=== PATIENT | female | born 1960 | race Caucasian/White ===

== ENCOUNTER 2019-07-14 04:15 | Outpatient (RCR) | payer MEDICARE, MEDICAID, SELFPAY | END 2019-07-19 | LOC: LAB 04:15 | PROVIDERS: Family Provider Internal Medicine; Visit Provider Nurse Practitioner Family | DX: I10 Essential (primary) hypertension (principal) | CPT/HCPCS: 36415; 80048; 83036; 85025 ==

== ENCOUNTER → 2019-08-29 14:11 | Outpatient (BNVA) | payer MEDICARE, MEDICAID, SELFPAY | PROVIDERS: Family Provider Internal Medicine; PCP Internal Medicine; Visit Provider Nurse Practitioner | DX: F25.0 Schizoaffective disorder, bipolar type (principal); F70 Mild intellectual disabilities | CPT/HCPCS: 99203 ==

== ENCOUNTER → 2019-11-21 08:19 | Outpatient (BNVA) | payer MEDICARE, MEDICAID, SELFPAY | PROVIDERS: Family Provider Internal Medicine; PCP Internal Medicine; Visit Provider Nurse Practitioner | DX: F25.0 Schizoaffective disorder, bipolar type (principal); F70 Mild intellectual disabilities | CPT/HCPCS: 99213 ==

== ENCOUNTER → 2020-02-23 11:07 | Outpatient (BNVA) | payer MEDICARE, MEDICAID, SELFPAY | PROVIDERS: Family Provider Internal Medicine; PCP Internal Medicine; Visit Provider Nurse Practitioner | DX: F70 Mild intellectual disabilities (principal); F25.0 Schizoaffective disorder, bipolar type | CPT/HCPCS: 99214 ==

== ENCOUNTER → 2020-03-21 07:53 | Outpatient (BNVA) | payer MEDICARE, MEDICAID, SELFPAY | PROVIDERS: Family Provider Internal Medicine; PCP Internal Medicine; Visit Provider Nurse Practitioner | DX: F25.0 Schizoaffective disorder, bipolar type (principal); F70 Mild intellectual disabilities | CPT/HCPCS: 99213 ==

== ENCOUNTER 2020-06-28 18:16 | Inpatient (IN) | payer MEDICARE, MEDICAID, SELFPAY ==
[2020-06-28] VITALS (10 sets, daily range): BP systolic 108–133; BP diastolic 53–75; PULSE 88–99; RESP 18–24; TEMP 37.3–38.8; O2SAT 91–100; BMI 61.0
--- NOTE | 2020-06-28 18:25 | XR_ITS ---
WS: [id number] XR chest 1V portable [id number] REASON FOR EXAM: shortness of breath, covid FINDINGS: No previous examination for comparison. Moderate tortuosity the thoracic aorta without significant dilatation. The heart is normal. Findings are equivocal but there is suspicion for patchy interstitial alveolar infiltrative changes i n the mid and lower lung griffin. No findings for effusion. XR/XR chest 1V portable [id number] IMPRESSION: Equivocal findings for infiltrates in both lungs as above. Follow-up chest x-ra y recommended. Definitive evaluation would be noncontrast CT scan of the chest.
--- NOTE | 2020-06-28 18:27 | ECG_ITS ---
[facility] Test Date: 2020-06-28 Pat Name: Taylor Stanley Department: Room: Gender: Female Job Site Superintendent: : 1960 Requested By: Efrain Scott Order Number: [id number] Gage MD: Luciana Hernandez M.D. Measurements Intervals [place] Rate: 94 P: 81 IA: 199 QRS: 74 QRSD: 156 T: 46 QT: 366 QTc: 460 Interpretive Statements SINUS RHYTHM RIGHT BUNDLE BRANCH BLOCK [120+ ms QRS DURATION, UPRIGHT V1, 40+ ms S IN I/aVL/V4/V5/V6] INTERPRETATION BASED ON A DEFAULT AGE OF 40 YEARS No previous ECG available for comparison Electronically Signed On 06-28-2020 21:19:46 CITY WELLNESS COORDINATOR by Luciana Hernandez M.D. [email or web address]/store/[id number] f
[2020-06-28] MEDS: ondansetron 2 mg/ML SDV 2 mL 4 MG IVP (18:44)
[2020-06-28] MEDS: cefepime 2,000 MG in sodium chloride 0.9% (plus) 50 ML 100 MG IV (18:44)
--- NOTE | 2020-06-28 18:44 | CTR_ITS ---
PROCEDURE INFORMATION: Exam: CT Head Without Contrast Exam date and time: 06/28/2020 7:07 PM Age: 59 years old Clinical indication: Altered mental status/memory loss; Patient HX: PT nonverbal. Best images. PT coughed through entire exam. Covid +; Additional info: AMS TECHNIQUE: Imaging protocol: Computed tomography of the head without contrast. Radiation optimization: All CT scans at this facility use at least one of these dose optimization techniques: automated exposure control; mA and/or kV adjustment per patient size (includes targeted exams where dose is matched to clinical indication); or iterative reconstruction. COMPARISON: No relevant prior studies available. RADIATION DOSE METRICS: Total DLP (mGy-cm): 1345.86 FINDINGS: Brain: Normal. No hemorrhage. Unremarkable white matter. No mass effect. Cerebral ventricles: No ventriculomegaly. Bones/joints: Unremarkable. No acute fracture. Paranasal sinuses: Visualized sinuses are unremarkable. No fluid levels. Mastoid air cells: Visualized mastoid air cells are well aerated. Vasculature: Moderate calcified intracranial atherosclerotic vessel disease. Soft tissues: Unremarkable. Dental: Examination is limited secondary to metallic artifact from dental fillings and/or dental hardware. CT/CT head wo con* [id number] IMPRESSION: No acute intracranial findings. Radiation Dose CTDIVOL = (mGy): DLP = 1345.86 (mGy-cm)
[2020-06-28 18:46] LABS: Basophils % 0.2 %; Eosinophils # 0.1 10^3/uL (0.0-0.8); Eosinophils % 0.6 %; Hemoglobin 11.4 g/dL (11.5-15.3); Lymphocytes # 1.8 10^3/uL (0.8-4.8); Lymphocytes % 17.6 %; Mean Corpuscular Hemoglobin 26.9 pg (28.0-34.0); Mean Corpuscular Volume 89.6 fL (81-99); Mean Platelet Volume 10.4 fL (7.4-10.4); Monocytes # 1.2 10^3/uL (0.2-0.9); Neutrophils # 6.91 10^3/uL (1.8-7.7); Neutrophils % 68.9 %; Nucleated Red Blood Cells % 0 %; Platelet Count 227 10^3/cmm (130-400); Red Blood Count 4.24 10^6/uL (4.1-5.3); Red Cell Distribution Width 14.2 % (12.1-15.1)
[2020-06-28 19:07] LABS: Lactic Sepsis W/Reflex 1.2 mmol/L (0.5-2.2)
[2020-06-28 19:08] LABS: Alanine Aminotransferase 35 U/L (0-33); Albumin Level 3.3 g/dL (3.5-5.2); Alkaline Phosphatase 68 IU/L (35-105); Anion Gap 16.1 (5-19); Aspartate Amino Transferase 48 U/L (0-32); Blood Urea Nitrogen 70 mg/dL (8-23); Calcium 8.5 mg/dL (8.5-10.5); Carbon Dioxide 30 mmol/L (22-29); Chloride 90 mmol/L (98-107); Creatinine Clr Calc Pharmacy 33.9185; Globulin 3.4 g/dL (1.3-4.6); Glomerular Filtration Rate 20.5 mL/min (90-130); Glucose 148 mg/dL (65-115); Osmolality Calculated 295 mOsm/kg (285-295); Potassium 5.1 mmol/L (3.5-5.1); Sodium 131 mmol/L (136-145); Total Bilirubin 0.3 mg/dL (0.15-1.2); Total Protein 6.7 g/dL (6.6-8.7)
[2020-06-28 19:09] LABS: Troponin(5th) Baseline 25 ng/L (0-10)
[2020-06-28 19:18] LABS: Partial Thromboplastin Time 40.7 SECONDS (23.9-36.7)
[2020-06-28 19:20] LABS: Arterial Blood Gas Hematocrit 34.5 % (37-47); Blood Gas Allen Test Pos; Blood Gas Sample Type Arterial; HCO3 ABG 29.7 mmol/L (22-26); PO2 ABG 70.4 mmHg (80.0-100.0)
[2020-06-28 19:21] LABS: Blood Gas Operator Identificat HARKR; Blood Gas Sample Site Radial, right; Oxygen Device NC
[2020-06-28 19:26] LABS: ABG PCO2 61.2 mmHg (35-45)
--- NOTE | 2020-06-28 20:25 | ECG_ITS ---
[facility] Test Date: 2020-06-28 Pat Name: Taylor Stanley Department: Room: ICU19 Gender: Female Loan Interviewer: : 1960 Requested By: Sue Rajan Order Number: [id number] Merari MD: Jamal Cabrera M.D. Measurements Intervals [place] Rate: 94 P: 30 ME: 188 QRS: 76 QRSD: 151 T: 17 QT: 358 QTc: 449 Interpretive Statements SINUS RHYTHM RIGHT BUNDLE BRANCH BLOCK [120+ ms QRS DURATION, UPRIGHT V1, 40+ ms S IN I/aVL/V4/V5/V6] Compared to ECG 06/28/2020 18:23:05 No significant changes Electronically Signed On 06-29-2020 20:55:02 COOKEE by Jamal Cabrera M.D. [email or web address] [email or web address] [email or web address]/store/NU/[id number] massimo
--- NOTE | 2020-06-28 20:40 | W.ED.COVID ---
HPI - COVID General: Chief Complaint: COVID symptoms Stated Complaint: COVID COMPLICATIONS Time Seen by Provider: 06/28/20 18:19 Triage information: Has fever, cough or shortness of breath. Exposure to COVID + person last 14 days History of Present Illness: HPI Narrative: Patient is a 59-year-old female seen for report of shortness of breath and altered mental status from [facility]. [facility] states that her blood pressure is 70/40 with an oxygen in the 70s. They claim she had a GCS of 9. In route, we prepared for intubation, however on arrival we found her to have an oxygen saturation of 87% on room air and blood pressure 120/70. She does have some trouble answering questions, and is not the best historian. Documentation from the [facility] shows that she tested positive for COVID-19 roughly 4 days ago. [facility] staff relate that she stopped eating 2 days ago, and was found to have an oxygen saturation of 80% yesterday on room air. She does not traditionally wear oxygen.. She denies headache, chest pain, admits cough and mild shortness of breath, denies nausea, vomiting, dysuria, frequency. [place] SMYTH complaint: known COVID positive Prior covid testing: no COVID Results: No Data to Display Review of Systems General: Reports: ROS unobtainable due to mental status PFSH ED PFSH: Medical History (Updated 06/28/20 @ 22:21 by Yamileth Braxton MD) Diabetes mellitus Epilepsy GERD (gastroesophageal reflux disease) GERD (gastroesophageal reflux disease) HTN (hypertension) Leg edema Mild intellectual disabilities EVETTE (obstructive sleep apnea) Schizoaffective disorder, bipolar type Surgical History (Updated 06/28/20 @ 22:21 by Yamileth Braxton MD) S/P cholecystectomy Family History Mother Hypertension Diabetes Father Hypertension Sister Cancer Social History Smoking and tobacco status: never smoked Physical Exam Const: COMMON NORMALS: no acute distress, alert and well nourished GENERAL APPEARANCE: other (Somnolent) ORIENTATION/CONSCIOUSNESS: Yes oriented to person and Yes oriented to place; not oriented to time HENMT: COMMON NORMALS: normocephalic and atraumatic HEAD & SCALP: normocephalic and atraumatic Eye: COMMON NORMALS: Equal, round and reactive pupils present, EOMs intact bilaterally and no scleral icterus PUPIL: Yes Equal, round and reactive pupils present Neck/C-Spine: COMMON NORMALS: supple and no meningeal signs Resp: COMMON NORMALS: No retractions; negative for clear to auscultation bilaterally (Mild crackles bilaterally) AUSCULTATION: not clear to auscultation bilaterally Cardio: COMMON NORMALS: regular rate, regular rhythm and No murmurs present (Cardio) RATE: regular rate RHYTHM: regular rhythm GI: COMMON NORMALS: Normal to inspection, nondistended, normoactive bowel sounds present, Soft to palpation and non-tender PALPATION: Yes Soft to palpation Neuro: COMMON NORMALS: CN's II-XII intact bilaterally, moves all extremities and no focal motor deficits SENSORIUM/ORIENTATION: Yes alert, Yes oriented to person, Yes oriented to place, No oriented to time, Yes Orientation impaired and Yes somnolent MENINGEAL SIGNS: Yes no meningeal signs Skin: COMMON NORMALS: no rashes or lesions noted GENERAL SKIN EXAM: no rashes or lesions noted Course Vital Signs: Vital signs: Vital Signs Temperature 99.1 F 06/28/20 18:18 Pulse Rate 91 06/28/20 22:12 Respiratory Rate 20 H 06/28/20 22:12 Blood Pressure 119/70 06/28/20 22:12 Pulse Oximetry 97 06/28/20 22:12 MDM - COVID MDM Narrative: Medical decision making narrative: Patient remained mildly tachypneic but otherwise hemodynamically stable throughout ED course. Given her BMI, she is at high risk for decompensation with COVID-19 as it progresses. She has had decreased oral intake and change in mental status over the last 2 days according to [facility] staff. CT the head shows no acute process. Blood gas shows what appears to be uncompensated hypercapnic respiratory failure. BiPAP will be initiated. She will be been to the hospital service for further observation and care. Lab Data: Labs: Lab Results 06/28/20 06/28/20 06/28/20 Range/Units 18:30 18:30 18:30 WBC (4.0-10.0) 10^3/ uL RBC (4.1-5.3) 10^6/u L Hgb (11.5-15.3) g/dL Hct (37.0-47.0) % MCV (81-99) fL MCH (28.0-34.0) pg MCHC (30.0-36.0) g/dL RDW (12.1-15.1) % Plt Count (130-400) 10^3/c mm MPV (7.4-10.4) fL Neut % (Auto) % Lymph % (Auto) % [place] % (Auto) % Eos % (Auto) % Baso % (Auto) % Neut # (Auto) (1.8-7.7) 10^3/u L Lymph # (Auto) (0.8-4.8) 10^3/u L [place] # (Auto) (0.2-0.9) 10^3/u L Eos # (Auto) (0.0-0.8) 10^3/u L Baso # (Auto) (0.0-0.1) 10^3/u L Nucleated RBC % (a uto) % Nucleated RBCs # /100WBC PT 14.60 (12.1-14.9) SECO NDS INR 1.10 (0.8-1.2) APTT 40.7 H (23.9-36.7) SECO NDS Specimen Type Sample Site ABG pH (7.35-7.45) ABG pCO2 (35-45) mmHg ABG pO2 (80.0-100.0) mmH g ABG HCO3 (22-26) mmol/L ABG Base Excess (-2.0-2.0) mmol/ L Bhavik Test Hematocrit (37-47) % O2 Delivery Device O2 Liters/Min % Technology Resource Teacher ID Sodium 131 L (136-145) mmol/L Potassium 5.1 (3.5-5.1) mmol/L Chloride 90 L (98-107) mmol/L Carbon Dioxide 30 H (22-29) mmol/L Anion Gap 16.1 (5-19) BUN 70 H (8-23) mg/dL Creatinine 2.4 H (0.5-0.9) mg/dL GFR Calculation 20.5 L (90-130) mL/min Glucose 148 H (65-115) mg/dL Calculated Osmolal ity 295 (285-295) mOsm/k g Lactic Acid 1.2 (0.5-2.2) mmol/L Calcium 8.5 (8.5-10.5) mg/dL Total Bilirubin 0.3 (0.15-1.2) mg/dL AST 48 H (0-32) U/L ALT 35 H (0-33) U/L Alkaline Phosphata se 68 (35-105) IU/L Troponin T Baselin e (0-10) ng/L Troponin T 120 Min [place] (0-10) ng/L Delta Troponin T (0-10) ABS# Total Protein 6.7 (6.6-8.7) g/dL Albumin 3.3 L (3.5-5.2) g/dL Globulin 3.4 (1.3-4.6) g/dL 06/28/20 06/28/20 06/28/20 Range/Units 18:30 18:30 19:10 WBC 10.0 (4.0-10.0) 10^3/ uL RBC 4.24 (4.1-5.3) 10^6/u L Hgb 11.4 L (11.5-15.3) g/dL Hct 38.0 (37.0-47.0) % MCV 89.6 (81-99) fL MCH 26.9 L (28.0-34.0) pg MCHC 30.0 (30.0-36.0) g/dL RDW 14.2 (12.1-15.1) % Plt Count 227 (130-400) 10^3/c mm MPV 10.4 (7.4-10.4) fL Neut % (Auto) 68.9 % Lymph % (Auto) 17.6 % [place] % (Auto) 12.0 % Eos % (Auto) 0.6 % Baso % (Auto) 0.2 % Neut # (Auto) 6.91 (1.8-7.7) 10^3/u L Lymph # (Auto) 1.8 (0.8-4.8) 10^3/u L [place] # (Auto) 1.2 H (0.2-0.9) 10^3/u L Eos # (Auto) 0.1 (0.0-0.8) 10^3/u L Baso # (Auto) 0.0 (0.0-0.1) 10^3/u L Nucleated RBC % (a uto) 0 % Nucleated RBCs # 0.0 /100WBC PT (12.1-14.9) SECO NDS INR (0.8-1.2) APTT (23.9-36.7) SECO NDS Specimen Type Arterial Sample Site Radial, right ABG pH 7.30 L (7.35-7.45) ABG pCO2 61.2 H* (35-45) mmHg ABG pO2 70.4 L (80.0-100.0) mmH g ABG HCO3 29.7 H (22-26) mmol/L ABG Base Excess 2.0 (-2.0-2.0) mmol/ L Bhavik Test Pos Hematocrit 34.5 L (37-47) % O2 Delivery Device Nc O2 Liters/Min 2.0 % Technology Resource Teacher ID Harkr Sodium (136-145) mmol/L Potassium (3.5-5.1) mmol/L Chloride (98-107) mmol/L Carbon Dioxide (22-29) mmol/L Anion Gap (5-19) BUN (8-23) mg/dL Creatinine (0.5-0.9) mg/dL GFR Calculation (90-130) mL/min Glucose (65-115) mg/dL Calculated Osmolal ity (285-295) mOsm/k g Lactic Acid (0.5-2.2) mmol/L Calcium (8.5-10.5) mg/dL Total Bilirubin (0.15-1.2) mg/dL AST (0-32) U/L ALT (0-33) U/L Alkaline Phosphata se (35-105) IU/L Troponin T Baselin e 25 H (0-10) ng/L Troponin T 120 Min [place] (0-10) ng/L Delta Troponin T (0-10) ABS# Total Protein (6.6-8.7) g/dL Albumin (3.5-5.2) g/dL Globulin (1.3-4.6) g/dL 06/28/20 06/28/20 Range/Units 20:27 21:33 WBC (4.0-10.0) 10^3/ uL RBC (4.1-5.3) 10^6/u L Hgb (11.5-15.3) g/dL Hct (37.0-47.0) % MCV (81-99) fL MCH (28.0-34.0) pg MCHC (30.0-36.0) g/dL RDW (12.1-15.1) % Plt Count (130-400) 10^3/c mm MPV (7.4-10.4) fL Neut % (Auto) % Lymph % (Auto) % [place] % (Auto) % Eos % (Auto) % Baso % (Auto) % Neut # (Auto) (1.8-7.7) 10^3/u L Lymph # (Auto) (0.8-4.8) 10^3/u L [place] # (Auto) (0.2-0.9) 10^3/u L Eos # (Auto) (0.0-0.8) 10^3/u L Baso # (Auto) (0.0-0.1) 10^3/u L Nucleated RBC % (a uto) % Nucleated RBCs # /100WBC PT (12.1-14.9) SECO NDS INR (0.8-1.2) APTT (23.9-36.7) SECO NDS Specimen Type Arterial Sample Site Radial, right ABG pH 7.30 L (7.35-7.45) ABG pCO2 61.1 H* (35-45) mmHg ABG pO2 76.0 L (80.0-100.0) mmH g ABG HCO3 29.9 H (22-26) mmol/L ABG Base Excess 2.2 H (-2.0-2.0) mmol/ L Bhavik Test Pos Hematocrit 34.4 L (37-47) % O2 Delivery Device Nc O2 Liters/Min 2.0 % Technology Resource Teacher ID Harkr Sodium (136-145) mmol/L Potassium (3.5-5.1) mmol/L Chloride (98-107) mmol/L Carbon Dioxide (22-29) mmol/L Anion Gap (5-19) BUN (8-23) mg/dL Creatinine (0.5-0.9) mg/dL GFR Calculation (90-130) mL/min Glucose (65-115) mg/dL Calculated Osmolal ity (285-295) mOsm/k g Lactic Acid (0.5-2.2) mmol/L Calcium (8.5-10.5) mg/dL Total Bilirubin (0.15-1.2) mg/dL AST (0-32) U/L ALT (0-33) U/L Alkaline Phosphata se (35-105) IU/L Troponin T Baselin e (0-10) ng/L Troponin T 120 Min [place] 23.17 H (0-10) ng/L Delta Troponin T -1.83 L (0-10) ABS# Total Protein (6.6-8.7) g/dL Albumin (3.5-5.2) g/dL Globulin (1.3-4.6) g/dL EKG Data: EKG 1: EKG interpretation date: 06/28/20 EKG interpretation time: 20:26 Interpretation: Sinus rhythm with right bundle branch block pattern, rate of 94, no ST elevation or depression, intervals within normal limits. EKG 2: EKG interpretation date: 06/28/20 EKG interpretation time: 18:23 Interpretation: Sinus rhythm with right bundle branch block pattern, no ST elevation or depression, intervals within normal limits, rate of 94. COVID Results: No Data to Display Discharge Plan Discharge Admit Provider: Yamileth Braxton Coding Level of Care Code ED Administrative Services Director for g Fwd Exam Comprehensive
[2020-06-28 21:10] LABS: Troponin 5 2HR 23.17 ng/L (0-10)
[2020-06-28 21:24] LABS: Troponin 5 2HR Delta -1.83 ABS# (0-10)
[2020-06-28 21:43] LABS: Arterial Blood Gas Hematocrit 34.4 % (37-47); Base Excess ABG 2.2 mmol/L (-2.0-2.0); Blood Gas Allen Test Pos; Blood Gas Sample Type Arterial; HCO3 ABG 29.9 mmol/L (22-26)
[2020-06-28 21:44] LABS: ABG PCO2 61.1 mmHg (35-45); Blood Gas Operator Identificat HARKR; Blood Gas Sample Site Radial, right; Oxygen Device NC
--- NOTE | 2020-06-28 22:19 | P.HP_ITS ---
Providers/Chief Complaint Primary Care Provider: Mirza Jones MD Chief Complaint: COVID COMPLICATIONS History of Present Illness Taylor Stanley is a 59 year old female who presented to the hospital from [facility] care. Patient was tested positive with COVID-19 a week ago, at the facility her p.o. intake has decreased significantly, at baseline she would walk and communicate with the residents which has changed in last 2 days, she is not eating at all, seems very lethargic her O2 saturation at the facility was 93% on room air, main reason to transfer her to the hospital was decreased p.o. intake. When patient arrived in the ER she was desaturating 8586% on room air, she was put on 2 to 3 L nasal cannula oxygen supplementation which improved her oxygenation, blood gas showed hypercapnic respiratory failure, I requested ER to put her on BiPAP and sent her toVICU. I examined the patient in ICU, repeat blood gas was done on nasal cannula, BiPAP was not initiated until she was about to be transferred. Patient is very lethargic and drowsy however spontaneously opening her eyes and giving me a thumbs up when asked about her breathing. Documentation reviewed, she is full code, diagnosis in the ER revealed hypoxic hypercapnic respiratory failure, chest x-ray revealed left sided atelectasis, D- dimer 0.9, CINTHIA creatinine 2.4 At the facility she started Levaquin for possible community-acquired pneumonia. Procalcitonin is unremarkable no signs of sepsis Review of Systems General: Reports: ROS unobtainable due to medical condition (Hypoactive delirium due to COVID-19) Medications/Allergies Home Medications Medication Instructions Recorded Confirmed Last Taken Type cetirizine 10 mg capsule 10 mg PO DAILY@06 08/29/19 06/28/20 06/28/20 History diazepam 2 mg tablet 0.5 mg PO DAILY@20 tab 08/29/19 06/28/20 06/27/20 History diazepam 2 mg tablet 1 mg PO DAILY@06 tab 08/29/19 06/28/20 06/28/20 History folic acid 1 mg tablet 1 mg PO DAILY@06 08/29/19 06/28/20 06/28/20 History gabapentin 100 mg capsule 100 mg PO TID@08,14,08/29/19 06/28/20 06/28/20 History hydrocodone 5 mg-acetaminophen 325 1 tab PO BID@,08/29/19 06/28/20 06/28/20 History mg tablet lisinopril 40 mg tablet 40 mg PO DAILY@08/29/19 06/28/20 06/28/20 History omeprazole magnesium 20 mg 20 mg PO DAILY@08/29/19 06/28/20 06/28/20 History tablet,delayed release pravastatin 20 mg tablet 20 mg PO DAILY@08/29/19 06/28/20 06/27/20 History propranolol 80 mg capsule,24 80 mg PO Q24H 08/29/19 06/28/20 06/28/20 History hr,extended release metformin 1,000 mg tablet,extended 500 mg PO BID@ tab 01/04/20 06/28/20 06/28/20 History release 24hr Cymbalta 30 mg PO DAILY@06/28/20 06/28/20 06/28/20 History Cymbalta 60 mg PO DAILY@06/28/20 06/28/20 06/28/20 History Lactobacillus acidophilus 1 tab PO BID@06/28/20 06/28/20 06/28/20 History [Acidophilus] Risperdal 1 mg PO BID@06/28/20 06/28/20 06/28/20 History acetaminophen [Tylenol] 325 mg PO Q4H PRN 06/28/20 06/28/20 Unknown History albuterol sulfate 2.5 mg INHALATION Q4H PRN 06/28/20 06/28/20 Unknown History aspirin 81 mg PO DAILY@06/28/20 06/28/20 06/28/20 History calcium carbonate [Tums] 400 mg PO QID PRN 06/28/20 06/28/20 Unknown History camphor-methyl salicyl-menthol 1 patch TOPICAL DAILY PRN 06/28/20 06/28/20 Unkn own History [Salonpas] ceftriaxone [Rocephin] 1 g IM ONCE 06/28/20 06/28/20 06/28/20 History ONE TIME DOSE chlorthalidone 25 mg PO DAILY@06/28/20 06/28/20 06/28/20 History cranberry 450 mg PO BID@06/28/20 06/28/20 06/28/20 History enoxaparin [Lovenox] 40 mg SUBCUT DAILY@08 06/28/20 06/28/20 06/28/20 History fluticasone propionate 1 spray INTRANASAL DAILY@06 06/28/20 06/28/20 06/28/20 History fluticasone propionate [Flovent] 1 puff INHALATION BID@06,18 06/28/20 06/28/20 06/28/20 History guaifenesin [Tussin] 200 mg PO Q4H PRN 06/28/20 06/28/20 Unknown History hydrocodone-acetaminophen 1 tab PO DAILY PRN 06/28/20 06/28/20 Unknown History hydroxyzine HCl 25 mg PO TID@06,12,06/28/20 06/28/20 06/28/20 History levofloxacin [Levaquin] 750 mg PO DAILY@14 06/28/20 06/28/20 06/28/20 History magnesium hydroxide [Milk of 30 ml PO DAILY PRN 06/28/20 06/28/20 Unknown History Magnesia] menthol [Cough Drops] 5.8 mg MUCOUS MEMBRANE Q2H PRN 06/28/20 06/28/20 Unknown History polyvinyl alcohol [Artificial 1 drp OPHTHALMIC (EYE) TID@06,,06/28/20 06/28/20 06/28/20 History Tears (polyvin alc)] Allergies Allergy/AdvReac Type Severity Reaction Status Date / Time Bleach (Sodium Hypochlorite) Allergy Unknown Verified 08/29/19 14:33 sodium hypochlorite solution Allergy Unknown Verified 08/29/19 14:33 PFSH Acute PFSH: Medical History (Updated 06/28/20 @ 23:41 by Yamileth Braxton MD) Diabetes mellitus Dry eye syndrome Epilepsy GERD (gastroesophageal reflux disease) GERD (gastroesophageal reflux disease) HTN (hypertension) Intellectual disability Leg edema Migraine Mild intellectual disabilities EVETTE (obstructive sleep apnea) Schizoaffective disorder, bipolar type Seizure disorder Thyrotoxicosis Surgical History S/P cholecystectomy Family History Mother Hypertension Diabetes Father Hypertension Sister Cancer Social History (Updated 06/28/20 @ 23:41 by Yamileth Braxton MD) Smoking and tobacco status: never smoked Alcohol intake: never Substance/Drug Use: never Housing: Care Home Vitals/I&O/Wt Last Vital Signs Temp 99.1 F 06/28/20 18:18 Pulse 91 06/28/20 22:12 Resp 20 H 06/28/20 22:12 BP 119/70 06/28/20 22:12 Pulse Ox 97 06/28/20 22:12 Weight last 48 hrs Weight 146.51 kg Physical Exam Narrative: EXAM NARRATIVE: Morbidly obese middle-aged female who a ppears more than stated age Appears very drowsy and somnolent Currently on BiPAP saturating 100% with normal hemodynamics Patient is spontaneously opening her eyes able to give me a thumbs up when asked about her breathing status, she seems very lethargic not able to lift her arm against gravity Nontender abdomen, distended bowel sound present S1-S2 difficult to appreciate heart sounds due to BiPAP assisted breaths Do not appreciate any wheezing or crackles Lower extremity nonpitting edema Limited neuro exam Hypoactive delirium GCS 10-11 Skin without ischemia gangrene or ulcer Does not look fluid overloaded Data : 06/28/20 18:30 06/28/20 18:30 Micro: Microbiology 06/28/20 18:25 Blood Culture - Preliminary Blood SPECIMEN COLLECTED 06/28/20 18:30 Blood Culture - Preliminary Blood SPECIMEN COLLECTED A&P Assessment and plan (1) Acute respiratory failure with hypoxia and hypercapnia: Status: Acute (2) Metabolic encephalopathy: Status: Acute (3) CINTHIA (acute kidney injury): Status: Acute (4) Anorexia: Status: Acute (5) Generalized weakness: Status: Acute Additional A&P Information Acute hypoxic hypercarbic respiratory failure This most likely secondary to worsening COVID-19 and hypoventilation with underlying CINTHIA Currently saturating well on BiPAP will obtain blood gas in 15 minutes tissue effectiveness of BiPAP in order to make decision regarding we will need intubation or not GCS 11 Chest x-ray reveals left-sided atelectasis/pleural effusion, official read is pending She received Levaquin at the long term, she is not septic, would not continue Levaquin for now, procalcitonin unremarkable temperature 101.3 noted in the ICU We will do per rectal Tylenol Noted high D-dimer will start heparin drip Metabolic encephalopathy This most likely secondary to uremia, dehydration, CINTHIA High risk for intubation We will place Pablo catheter to monitor urine output, will request renal u ltrasound to rule out hydronephrosis I would discontinue all of her benzodiazepines and antipsychotics for now CINTHIA As per nursing report she has not been eating well for last 48 hours and on top of that she has been taking a lot of benzodiazepines along lisinopril which I would hold for now Monitor urine output and correlate with creatinine, follow-up with renal ultrasound Generalized weakness most likely secondary to COVID-19 progression Start Decadron and remdesivir Start heparin for hypoxic respite failure and high D-dimer Full code confirmed from long term reviewed her documentation Cardiac diet to be initiated once she is able to tolerate DVT prophylaxis not needed currently she will get heparin drip Attestations Medical Necessity Statement*: Anticipating stay in the hospital cross more than 2 midnights currently need management in ICU for worsening of generalized weakness, hypercarbic, hypoxic respiratory failure, high risk for intubation Time Spent in Patient Care: (>than 50% of time spent in counselling and/or direct pt care on unit) . 50mins Critical Care Time: Evaluated the patient, talk with the nurse at the bedside and called long term as well, evaluated BiPAP settings, will follow up on her as well to see improvement on BiPAP Critical Care Time (min): 35 Coding Level of Care Code Acute Job Service Specialist for Nolberto Silva Diagnoses Acute respiratory failure with hypoxia and hypercapnia J96.01; J96.02 Metabolic encephalopathy G93.41 CINTHIA (acute kidney injury) N17.9 Anorexia R63.0 Generalized weakness R53.1
--- NOTE | 2020-06-28 22:27 | PC.NURSE ---
report given to edmar sierra
[2020-06-28] MEDS: heparin 5,000 unit/mL INJ 1 mL 5000 UNIT SUBCUT (23:18)
[2020-06-28 23:23] LABS: Procalcitonin 0.16 ng/mL (0-0.5)
[2020-06-28] MEDS: acetaminophen 650 mg Supp PR (23:46)
[2020-06-28] MEDS: remdesivir 200 MG in sodium chloride 0.9% (100 ml) 100 ML 100 MG IV (23:46)
[2020-06-28] MEDS: dextrose 5%-sod chloride 0.9% 1,000 ML 30 ML IV (23:46)
[2020-06-28 23:56] LABS: ABG PCO2 57.8 mmHg (35-45); ABG PH Result 7.33 (7.35-7.45); Arterial Blood Gas Hematocrit 34.5 % (37-47); Base Excess ABG 3.1 mmol/L (-2.0-2.0); Blood Gas Allen Test Pos; Blood Gas Sample Site Radial, right; Blood Gas Sample Type Arterial; HCO3 ABG 30.3 mmol/L (22-26); Oxygen Device BIPAP; PO2 ABG 75.4 mmHg (80.0-100.0)
[2020-06-29] VITALS (30 sets, daily range): BP systolic 91–150; BP diastolic 47–89; PULSE 68–95; RESP 12–29; TEMP 36.2–37.2; O2SAT 90–99
[2020-06-29] MEDS: naloxone 0.4 mg/ml SDV IVP (00:10)
[2020-06-29] MEDS: heparin drip 25,000 UNIT/500 ML PREMIX 36 UNIT IV ×2 (01:01→12:02)
[2020-06-29] MEDS: sodium chloride 0.9% 1,000 ML 999 ML IV (01:04)
[2020-06-29 01:22] LABS: Platelet Count 237 10^3/cmm (130-400)
[2020-06-29 04:39] LABS: Basophils % 0.2 %; Eosinophils # 0.1 10^3/uL (0.0-0.8); Eosinophils % 0.6 %; Hematocrit 33.7 % (37.0-47.0); Hemoglobin 10.2 g/dL (11.5-15.3); Lymphocytes # 2.1 10^3/uL (0.8-4.8); Lymphocytes % 21.8 %; Mean Corpuscular HGB Conc 30.3 g/dL (30.0-36.0); Mean Corpuscular Hemoglobin 26.9 pg (28.0-34.0); Mean Corpuscular Volume 88.9 fL (81-99); Mean Platelet Volume 10.9 fL (7.4-10.4); Monocytes % 10.7 %; Neutrophils # 6.21 10^3/uL (1.8-7.7); Nucleated Red Blood Cells % 0 %; Platelet Count 214 10^3/cmm (130-400); Red Blood Count 3.79 10^6/uL (4.1-5.3); Red Cell Distribution Width 14.2 % (12.1-15.1); White Blood Count 9.4 10^3/uL (4.0-10.0)
[2020-06-29 05:00] LABS: Lactate Dehydrogenase 229 U/L (135-214)
[2020-06-29 05:01] LABS: Alanine Aminotransferase 28 U/L (0-33); Albumin Level 2.9 g/dL (3.5-5.2); Alkaline Phosphatase 57 IU/L (35-105); Aspartate Amino Transferase 44 U/L (0-32); Blood Urea Nitrogen 70 mg/dL (8-23); C Reactive Protein 62.7 mg/L (0.0-4.9); Calcium 7.9 mg/dL (8.5-10.5); Carbon Dioxide 30 mmol/L (22-29); Chloride 95 mmol/L (98-107); Glomerular Filtration Rate 28.6 mL/min (90-130); Glucose 113 mg/dL (65-115); Osmolality Calculated 297 mOsm/kg (285-295); Sodium 133 mmol/L (136-145); Total Bilirubin 0.2 mg/dL (0.15-1.2); Total Protein 5.9 g/dL (6.6-8.7)
[2020-06-29 05:05] LABS: Partial Thromboplastin Time 63.1 SECONDS (23.9-36.7)
[2020-06-29] MEDS: morphine 4 mg/mL SDV 1 mL 2 MG IVP (05:45)
[2020-06-29 08:45] LABS: Glucose Point of Care 110 mg/dL (70-110)
[2020-06-29 09:11] LABS: Partial Thromboplastin Time 134.8 SECONDS (23.9-36.7)
[2020-06-29] MEDS: dexamethasone 4 mg Tablet 6 MG PO (09:11)
[2020-06-29] MEDS: risperiDONE 1 mg Tablet PO ×2 (09:12→19:37)
--- NOTE | 2020-06-29 09:36 | PM.PN ---
Subjective Subjective: Interval history: Patient does not communicate much. She is on BiPAP. Denies chest pain. Follows simple commands and moves her both lower extremities when asked. Creatinine improved. CBC stable. Vitals/I&O/Wt Last Vital Signs Temp 101.8 F H 06/28/20 22:25 Pulse 89 06/29/20 08:24 Resp 15 06/29/20 04:00 BP 91/48 06/29/20 04:00 Pulse Ox 97 06/29/20 08:24 06/28/20 06/29/20 06/29/20 22:59 06:59 14:59 Intake Total 50 / 50 1100 / 1100 Output Total 550 / 550 Balance -500 / -500 1100 / 1100 Weight last 48 hrs Weight 146.51 kg Physical Exam Const: COMMON NORMALS: no acute distress Resp: COMMON NORMALS: normal respiratory effort OTHER: Bibasilar Rales. Cardio: COMMON NORMALS: regular rate, regular rhythm and S2 normal heart sound present RATE: regular rate RHYTHM: regular rhythm HEART SOUNDS: S2 normal heart sound present OTHER: No lower extremity edema GI: COMMON NORMALS: Normal to inspection, nondistended, normoactive bowel sounds present, Soft to palpation and non-tender PALPATION: Yes Soft to palpation Neuro: COMMON NORMALS: no focal motor deficits Urinary Catheter Management^: Pablo: Cath Placed During This Visit: yes Reason for Continuing Indwelling Catheter: Accurate Measurement of Urinary Output in Critically Ill Patients Urinary Catheter Date of Insertion: 06/28/20 Urinary Catheter Time of Insertion: 23:00 Data : 06/29/20 03:50 06/29/20 03:50 Micro: Microbiology 06/28/20 18:25 Blood Culture - Preliminary Blood SPECIMEN COLLECTED 06/28/20 18:30 Blood Culture - Preliminary Blood SPECIMEN COLLECTED A&P Assessment and plan (1) Acute respiratory failure with hypoxia and hypercapnia: Likely secondary to altered mental status, COVID-19 pneumonia and possibly obesity hypoventilation syndrome. Status: Acute (2) Metabolic encephalopathy: Improved. Status: Acute (3) CINTHIA (acute kidney injury): Prerenal, secondary to dehydration Status: Acute (4) Anorexia: Status: Acute (5) Generalized weakness: Status: Acute (6) Dehydration with hyponatremia: Present on admission. Status: Acute (7) Morbid obesity with BMI of 60.0-69.9, adult: Status: Acute (8) Pneumonia due to COVID-19 virus: Present on admission Status: Acute Additional A&P Information PLAN: Continue remdesivir and dexamethasone. Start patient on IV hydration with NS at 75 mill per hour with close monitoring of cardio-respiratory status. Monitor urinary output. Will request In-N-Out cath for UA. Will continue heparin drip for now. Attestations Medical Necessity Statement*: With COVID-19 pneumonia and respiratory failure requires close ICU monitoring and treatment. Time Spent in Patient Care: 16 - 35 minutes Coding Level of Care Code Acute Senior Project Engineer for [facility] Fwd Diagnoses Acute respiratory failure with hypoxia and hypercapnia J96.01; J96.02 Metabolic encephalopathy G93.41 CINTHIA (acute kidney injury) N17.9 Anorexia R63.0 Generalized weakness R53.1 Dehydration with hyponatremia E86.0; E87.1 Morbid obesity with BMI of 60.0-69.9, adult E66.01; Z68.44 Pneumonia due to COVID-19 virus U07.1; J12.89
[2020-06-29] MEDS: sodium chloride 0.9% 1,000 ML 75 ML IV (11:49)
[2020-06-29] MEDS: artificial tears Op Soln 15 mL Btl 1 DROP EYEAFF (11:54)
[2020-06-29] MEDS: cefepime 1,000 MG in sodium chloride 0.9% (plus) 50 ML 100 MG IV ×2 (12:02→23:42)
[2020-06-29 12:14] LABS: Glucose Point of Care 151 mg/dL (70-110)
[2020-06-29 14:44] LABS: Partial Thromboplastin Time 68.5 SECONDS (23.9-36.7)
[2020-06-29 15:20] LABS: Add Urine Microscopic? YES; Bilirubin Urine Neg (Negative); Blood Urine 2+ (Negative); Glucose Urine UA Norm (Normal); Ketones Urine Negative (Negative); Leukocyte Esterase Urine Negative (Negative); Nitrate Urine Negative (Negative); Protein Urine Neg (Negative); Specific Gravity, Urine 1.015 (1.005-1.030); Urine Appearance Hazy (CLEAR); Urine Color Yellow (Yellow); Urobilinogen Urine Norm (Negative); pH Urine 5 (5-7)
[2020-06-29 15:25] LABS: Add Urine Culture? Yes; Amorphous Sediment Urine 2+ /hpf; Bacteria Urine 2+ /hpf; Squamous Epithelial Cell Urine 0-4 /hpf (0-5)
[2020-06-29 16:06] LABS: Glucose Point of Care 178 mg/dL (70-110)
[2020-06-29] MEDS: atorvastatin 40 mg Tablet 20 MG PO (17:37)
[2020-06-29] MEDS: remdesivir 100 MG in sodium chloride 0.9% (100 ml) 100 ML IV (17:38)
[2020-06-29] MEDS: HYDROcodone-acetaminophen 5-325 mg Tablet 1 TAB PO (17:38)
--- NOTE | 2020-06-29 19:49 | PC.NURSE ---
Nurse at bedside obtaining accu-check and temperature
[2020-06-29 20:13] LABS: Glucose Point of Care 204 mg/dL (70-110)
[2020-06-29 20:49] LABS: Partial Thromboplastin Time 82.4 SECONDS (23.9-36.7)
[2020-06-29] MEDS: dextrose 5%-sod chloride 0.9% 1,000 ML 30 ML IV (23:43)
[2020-06-30] VITALS (33 sets, daily range): BP systolic 95–187; BP diastolic 55–102; PULSE 72–92; RESP 13–24; TEMP 36.4–37; O2SAT 89–100
[2020-06-30] MEDS: sodium chloride 0.9% 1,000 ML 75 ML IV (02:35)
[2020-06-30 03:08] LABS: Platelet Count 214 10^3/cmm (130-400)
[2020-06-30 03:42] LABS: Partial Thromboplastin Time 85.9 SECONDS (23.9-36.7)
[2020-06-30] MEDS: aspirin 81 mg Chew Tablet PO (06:19)
[2020-06-30] MEDS: pantoprazole DR 40 mg Tablet PO (06:19)
[2020-06-30] MEDS: artificial tears Op Soln 15 mL Btl 1 DROP EYEAFF ×2 (06:22→11:02)
[2020-06-30] MEDS: HYDROcodone-acetaminophen 5-325 mg Tablet 1 TAB PO ×2 (06:22→17:34)
[2020-06-30 08:10] LABS: Glucose Point of Care 142 mg/dL (70-110)
[2020-06-30] MEDS: dexamethasone 4 mg Tablet 6 MG PO (09:01)
[2020-06-30] MEDS: risperiDONE 1 mg Tablet PO ×2 (09:02→19:52)
[2020-06-30 10:24] LABS: Basophils % 0.1 %; Hematocrit 35.6 % (37.0-47.0); Hemoglobin 10.5 g/dL (11.5-15.3); Lymphocytes # 1.4 10^3/uL (0.8-4.8); Lymphocytes % 16.5 %; Mean Corpuscular HGB Conc 29.5 g/dL (30.0-36.0); Mean Corpuscular Hemoglobin 26.6 pg (28.0-34.0); Mean Corpuscular Volume 90.1 fL (81-99); Mean Platelet Volume 11.1 fL (7.4-10.4); Monocytes # 0.4 10^3/uL (0.2-0.9); Neutrophils # 6.38 10^3/uL (1.8-7.7); Neutrophils % 77.5 %; Nucleated Red Blood Cells % 0 %; Platelet Count 218 10^3/cmm (130-400); Red Blood Count 3.95 10^6/uL (4.1-5.3); White Blood Count 8.2 10^3/uL (4.0-10.0)
[2020-06-30 10:41] LABS: Partial Thromboplastin Time 54.6 SECONDS (23.9-36.7)
[2020-06-30 10:45] LABS: Alanine Aminotransferase 29 U/L (0-33); Albumin Level 2.6 g/dL (3.5-5.2); Alkaline Phosphatase 59 IU/L (35-105); Aspartate Amino Transferase 45 U/L (0-32); Blood Urea Nitrogen 41 mg/dL (8-23); Calcium 8.1 mg/dL (8.5-10.5); Carbon Dioxide 27 mmol/L (22-29); Chloride 99 mmol/L (98-107); Globulin 3.7 g/dL (1.3-4.6); Glomerular Filtration Rate 85.1 mL/min (90-130); Glucose 197 mg/dL (65-115); Osmolality Calculated 294 mOsm/kg (285-295); Sodium 134 mmol/L (136-145); Total Bilirubin 0.2 mg/dL (0.15-1.2); Total Protein 6.3 g/dL (6.6-8.7)
[2020-06-30] MEDS: cefepime 1,000 MG in sodium chloride 0.9% (plus) 50 ML 100 MG IV ×2 (11:02→23:25)
[2020-06-30 11:06] LABS: Anion Gap 13.2 (5-19); Potassium 5.2 mmol/L (3.5-5.1)
[2020-06-30 11:48] LABS: Glucose Point of Care 160 mg/dL (70-110)
--- NOTE | 2020-06-30 14:05 | PC.NURSE ---
Bathed patient with Diana Brian RN and jordy Arboleda. When cleaning backside we spread buttocks very wide and saw a large necrotic/eschar wound. Sacral area spread on both buttocks. Notified MD Aguillon and he stated to take a picture of the wound on vaulte and send it to him. [facility] and the only person who did on our floor was RT Cori. Used her phone to send to and he received. No orders given at this time.
[2020-06-30] MEDS: nystatin powder 15 gm Btl 1 APPLIC TOPICAL (14:17)
--- NOTE | 2020-06-30 15:11 | PC.NURSE ---
Notified MD of patient looking more edematous. MD ordered for NS fluids to be stopped. No other orders given.
[2020-06-30 16:57] LABS: Glucose Point of Care 173 mg/dL (70-110)
[2020-06-30 17:23] LABS: Partial Thromboplastin Time 47.1 SECONDS (23.9-36.7)
[2020-06-30] MEDS: atorvastatin 40 mg Tablet 20 MG PO (17:33)
[2020-06-30] MEDS: remdesivir 100 MG in sodium chloride 0.9% (100 ml) 100 ML IV (17:34)
[2020-06-30] MEDS: guaiFENesin 100 mg/5 mL UDC 10 mL 200 MG PO (17:34)
--- NOTE | 2020-06-30 19:00 | PC.NURSE ---
Report received, care assumed. Monitor alarms, plan of care et previous orders reviewed. Patient sitting in bed with HOB at 45 degrees on heparin gtt per weight based protocol. Patient resting with eyes closed but awakens to verbal command et is able to answer questions et follow commands. Please see physical assessment et vital sign flow sheet for details.
[2020-06-30] MEDS: heparin drip 25,000 UNIT/500 ML PREMIX 23 UNIT IV (19:52)
--- NOTE | 2020-06-30 20:30 | PC.NURSE ---
Patient resting in bed with eyes closed. SpO2 decreased to 68 %, on RA. Verbally stimulated patient et instructed to take deep breaths. SpO2 increased. Notified RT. RT placed on BiPAP at this time, see RT flow sheet for details. Will continue to monitor.
[2020-06-30 20:32] LABS: Glucose Point of Care 211 mg/dL (70-110)
[2020-07-01] VITALS (35 sets, daily range): BP systolic 111–185; BP diastolic 64–124; PULSE 73–102; RESP 14–23; TEMP 36.6–37.1; O2SAT 86–100
[2020-07-01 00:27] LABS: Partial Thromboplastin Time 47.6 SECONDS (23.9-36.7)
[2020-07-01] MEDS: pantoprazole DR 40 mg Tablet PO (05:05)
[2020-07-01] MEDS: aspirin 81 mg Chew Tablet PO (05:05)
[2020-07-01] MEDS: HYDROcodone-acetaminophen 5-325 mg Tablet 1 TAB PO ×2 (05:05→17:27)
[2020-07-01] MEDS: artificial tears Op Soln 15 mL Btl 1 DROP EYEAFF ×3 (05:05→17:27)
[2020-07-01 06:26] LABS: Basophils % 0.2 %; Eosinophils % 0.1 %; Hematocrit 35.1 % (37.0-47.0); Hemoglobin 10.8 g/dL (11.5-15.3); Lymphocytes % 17.7 %; Mean Corpuscular HGB Conc 30.8 g/dL (30.0-36.0); Mean Corpuscular Hemoglobin 27.1 pg (28.0-34.0); Mean Platelet Volume 11.1 fL (7.4-10.4); Monocytes # 0.8 10^3/uL (0.2-0.9); Monocytes % 7.1 %; Neutrophils # 8.19 10^3/uL (1.8-7.7); Neutrophils % 73.6 %; Nucleated Red Blood Cells % 0 %; Platelet Count 261 10^3/cmm (130-400); Red Blood Count 3.99 10^6/uL (4.1-5.3); Red Cell Distribution Width 13.9 % (12.1-15.1); White Blood Count 11.1 10^3/uL (4.0-10.0)
[2020-07-01 06:47] LABS: Partial Thromboplastin Time 57.3 SECONDS (23.9-36.7)
[2020-07-01 07:00] LABS: Alanine Aminotransferase 39 U/L (0-33); Albumin Level 3.1 g/dL (3.5-5.2); Alkaline Phosphatase 91 IU/L (35-105); Anion Gap 12.2 (5-19); Aspartate Amino Transferase 49 U/L (0-32); Blood Urea Nitrogen 30 mg/dL (8-23); Calcium 9.1 mg/dL (8.5-10.5); Carbon Dioxide 30 mmol/L (22-29); Chloride 99 mmol/L (98-107); Globulin 3.7 g/dL (1.3-4.6); Glomerular Filtration Rate 101.6 mL/min (90-130); Glucose 159 mg/dL (65-115); Magnesium 1.8 mg/dL (1.7-2.3); Osmolality Calculated 292 mOsm/kg (285-295); Potassium 5.2 mmol/L (3.5-5.1); Sodium 136 mmol/L (136-145); Total Bilirubin 0.3 mg/dL (0.15-1.2); Total Protein 6.8 g/dL (6.6-8.7)
[2020-07-01 07:52] LABS: Glucose Point of Care 145 mg/dL (70-110)
[2020-07-01] MEDS: nystatin powder 15 gm Btl 1 APPLIC TOPICAL ×2 (08:28→17:26)
[2020-07-01] MEDS: risperiDONE 1 mg Tablet PO ×2 (08:28→19:53)
[2020-07-01] MEDS: dexamethasone 4 mg Tablet 6 MG PO (08:28)
--- NOTE | 2020-07-01 09:38 | PM.PN ---
Subjective Subjective: Interval history: I failed to write a note yesterday after patient was evaluated on 06/30/2020. Patient denied shortness of breath or chest pain. Reported that she has been breathing better now. She was found to have large superficial blood dry gangrenous coccygeal wound. Her oxygen requirement improved. Vitals/I&O/Wt Last Vital Signs Temp 98.6 F 07/01/20 04:00 Pulse 81 07/01/20 08:31 Resp 17 07/01/20 05:01 BP 133/71 07/01/20 05:01 Pulse Ox 92 07/01/20 08:31 06/30/20 07/01/20 07/01/20 22:59 06:59 14:59 Intake Total 1077.1 / 2857.1 271.567 / 3128.667 1078 / 1078 Output Total 1200 / 1200 1150 / 2350 Balance -122.9 / 1657.1 -878.433 / 069.775 2652 / 1078 Physical Exam Const: COMMON NORMALS: no acute distress Resp: COMMON NORMALS: normal respiratory effort OTHER: Bibasilar Rales. Cardio: COMMON NORMALS: regular rate, regular rhythm and S2 normal heart sound present RATE: regular rate RHYTHM: regular rhythm HEART SOUNDS: S2 normal heart sound present OTHER: No lower extremity edema GI: COMMON NORMALS: Normal to inspection, nondistended, normoactive bowel sounds present, Soft to palpation and non-tender PALPATION: Yes Soft to palpation Neuro: COMMON NORMALS: no focal motor deficits Urinary Catheter Management^: Pablo: Cath Placed During This Visit: yes Reason for Continuing Indwelling Catheter: Accurate Measurement of Urinary Output in Critically Ill Patients Urinary Catheter Date of Insertion: 06/28/20 Urinary Catheter Time of Insertion: 23:00 Data : 07/01/20 05:00 07/01/20 05:00 Micro: Microbiology 06/29/20 14:30 Urine Culture - Final Urine,Clean Catch A&P Assessment and plan (1) Acute respiratory failure with hypoxia and hypercapnia: Likely secondary to altered mental status, COVID-19 pneumonia and possibly obesity hypoventilation syndrome. Status: Acute (2) Metabolic encephalopathy: Improved. Status: Acute (3) CINTHIA (acute kidney injury): Prerenal, secondary to dehydration Status: Acute (4) Anorexia: Status: Acute (5) Generalized weakness: Status: Acute (6) Dehydration with hyponatremia: Present on admission. Status: Acute (7) Morbid obesity with BMI of 60.0-69.9, adult: Status: Acute (8) Pneumonia due to COVID-19 virus: Present on admission Status: Acute Additional A&P Information PLAN: Continue remdesivir and dexamethasone. Continue heparin drip Discontinue IV fluids as patient's oral intake much improved. Start patient on Santyl with plan to have outpatient wound care follow-up. Patient currently does not have evidence of deep wound requiring surgical debridement. Attestations Medical Necessity Statement*: Patient with hypoxic respiratory failure requires close ICU monitoring and treatment. Coding Level of Care Code Acute Denture Finisher for [facility] Fwd Diagnoses Acute respiratory failure with hypoxia and hypercapnia J96.01; J96.02 Metabolic encephalopathy G93.41 CINTHIA (acute kidney injury) N17.9 Anorexia R63.0 Generalized weakness R53.1 Dehydration with hyponatremia E86.0; E87.1 Morbid obesity with BMI of 60.0-69.9, adult E66.01; Z68.44 Pneumonia due to COVID-19 virus U07.1; J12.89
--- NOTE | 2020-07-01 09:43 | PM.PN ---
Subjective Subjective: Interval history: Patient this morning reports feeling much better. She is saturating in the mid 90s on room air. She has good appetite. Denies chest pain or abdominal pain. Vitals/I&O/Wt Last Vital Signs Temp 98.6 F 07/01/20 04:00 Pulse 81 07/01/20 08:31 Resp 17 07/01/20 05:01 BP 133/71 07/01/20 05:01 Pulse Ox 92 07/01/20 08:31 06/30/20 07/01/20 07/01/20 22:59 06:59 14:59 Intake Total 1077.1 / 2857.1 271.567 / 3128.667 1078 / 1078 Output Total 1200 / 1200 1150 / 2350 Balance -122.9 / 1657.1 -878.433 / 885.089 9763 / 1078 Physical Exam Const: COMMON NORMALS: no acute distress Resp: COMMON NORMALS: normal respiratory effort OTHER: Bibasilar Rales. Cardio: COMMON NORMALS: regular rate, regular rhythm and S2 normal heart sound present RATE: regular rate RHYTHM: regular rhythm HEART SOUNDS: S2 normal heart sound present OTHER: No lower extremity edema GI: COMMON NORMALS: Normal to inspection, nondistended, normoactive bowel sounds present, Soft to palpation and non-tender PALPATION: Yes Soft to palpation Neuro: COMMON NORMALS: no focal motor deficits Urinary Catheter Management^: Pablo: Cath Placed During This Visit: yes Reason for Continuing Indwelling Catheter: Accurate Measurement of Urinary Output in Critically Ill Patients Urinary Catheter Date of Insertion: 06/28/20 Urinary Catheter Time of Insertion: 23:00 Data : 07/01/20 05:00 07/01/20 05:00 Micro: Microbiology 06/29/20 14:30 Urine Culture - Final Urine,Clean Catch A&P Assessment and plan (1) Acute respiratory failure with hypoxia and hypercapnia: Likely secondary to altered mental status, COVID-19 pneumonia and possibly obesity hypoventilation syndrome. Status: Acute (2) Metabolic encephalopathy: Improved. Status: Acute (3) CINTHIA (acute kidney injury): Prerenal, secondary to dehydration Status: Acute (4) Anorexia: Status: Acute (5) Generalized weakness: Status: Acute (6) Dehydration with hyponatremia: Present on admission. Status: Acute (7) Morbid obesity with BMI of 60.0-69.9, adult: Status: Acute (8) Pneumonia due to COVID-19 virus: Present on admission Status: Acute Additional A&P Information PLAN: Continue remdesivir and dexamethasone. Discontinue heparin drip and monitor. Discontinue Pablo catheter and make sure patient can urinate and if patient continues to improve we will likely be able to dismiss her back to nursing facility tomorrow or next day. Restart some of the home medications. Continue physical therapy. Transfer patient out of ICU. Attestations Medical Necessity Statement*: Morbidly obese lady with COVID-19 infection requires inpatient monitoring and treatment until deemed safe for discharge. Coding Level of Care Code Acute System Designer for [facility] Ricardo Diagnoses Acute respiratory failure with hypoxia and hypercapnia J96.01; J96.02 Metabolic encephalopathy G93.41 CINTHIA (acute kidney injury) N17.9 Anorexia R63.0 Generalized weakness R53.1 Dehydration with hyponatremia E86.0; E87.1 Morbid obesity with BMI of 60.0-69.9, adult E66.01; Z68.44 Pneumonia due to COVID-19 virus U07.1; J12.89
[2020-07-01] MEDS: cefepime 1,000 MG in sodium chloride 0.9% (plus) 50 ML 100 MG IV ×2 (10:21→23:39)
[2020-07-01 11:48] LABS: Glucose Point of Care 161 mg/dL (70-110)
[2020-07-01] MEDS: collagenase oint 30 gm 1 APPLIC TOPICAL (13:18)
[2020-07-01 16:46] LABS: Glucose Point of Care 178 mg/dL (70-110)
[2020-07-01] MEDS: atorvastatin 40 mg Tablet 20 MG PO (17:27)
[2020-07-01] MEDS: guaiFENesin 100 mg/5 mL UDC 10 mL 200 MG PO (17:33)
[2020-07-01] MEDS: remdesivir 100 MG in sodium chloride 0.9% (100 ml) 100 ML IV (17:55)
[2020-07-01] MEDS: diazePAM 2 mg Tablet 0.5 MG PO (19:45)
[2020-07-01] MEDS: gabapentin 100 mg Capsule PO ×2 (19:46→19:53)
--- NOTE | 2020-07-01 20:11 | PC.NURSE ---
Patient has Propanolol 80 mg extended release q 24 hr order that was scheduled to be given at 1800. This medication is not on formulary. Consulted with pharmacy et will notify the physician.
[2020-07-01] MEDS: propranolol 20 mg Tablet PO (20:56)
[2020-07-01 23:30] LABS: Glucose Point of Care 180 mg/dL (70-110)
[2020-07-02] VITALS (17 sets, daily range): BP systolic 132–176; BP diastolic 64–120; PULSE 65–91; RESP 16–22; TEMP 36.8–36.9; O2SAT 92–100
[2020-07-02 04:48] LABS: Basophils % 0.3 %; Eosinophils % 0.1 %; Hematocrit 36.3 % (37.0-47.0); Hemoglobin 10.9 g/dL (11.5-15.3); Lymphocytes # 2.6 10^3/uL (0.8-4.8); Lymphocytes % 20.6 %; Mean Corpuscular Hemoglobin 26.4 pg (28.0-34.0); Mean Corpuscular Volume 87.9 fL (81-99); Mean Platelet Volume 10.8 fL (7.4-10.4); Monocytes # 0.8 10^3/uL (0.2-0.9); Monocytes % 6.4 %; Neutrophils # 8.77 10^3/uL (1.8-7.7); Neutrophils % 70.9 %; Nucleated Red Blood Cells % 0 %; Platelet Count 269 10^3/cmm (130-400); Red Blood Count 4.13 10^6/uL (4.1-5.3); Red Cell Distribution Width 13.9 % (12.1-15.1); White Blood Count 12.4 10^3/uL (4.0-10.0)
[2020-07-02] MEDS: aspirin 81 mg Chew Tablet PO (06:26)
[2020-07-02] MEDS: duloxetine 60 mg Capsule PO (06:26)
[2020-07-02] MEDS: duloxetine 30 mg Capsule PO (06:27)
[2020-07-02] MEDS: diazePAM 2 mg Tablet 1 MG PO (06:27)
[2020-07-02] MEDS: HYDROcodone-acetaminophen 5-325 mg Tablet 1 TAB PO (06:30)
[2020-07-02] MEDS: pantoprazole DR 40 mg Tablet PO (06:30)
[2020-07-02] MEDS: lisinopril 20 mg Tablet 40 MG PO (06:30)
[2020-07-02] MEDS: artificial tears Op Soln 15 mL Btl 1 DROP EYEAFF ×2 (06:42→12:32)
[2020-07-02 06:47] LABS: Alanine Aminotransferase 70 U/L (0-33); Albumin Level 3.3 g/dL (3.5-5.2); Alkaline Phosphatase 71 IU/L (35-105); Aspartate Amino Transferase 80 U/L (0-32); Blood Urea Nitrogen 23 mg/dL (8-23); Calcium 9.5 mg/dL (8.5-10.5); Carbon Dioxide 27 mmol/L (22-29); Chloride 99 mmol/L (98-107); Globulin 3.5 g/dL (1.3-4.6); Glomerular Filtration Rate 125.4 mL/min (90-130); Glucose 148 mg/dL (65-115); Magnesium 1.4 mg/dL (1.7-2.3); Osmolality Calculated 290 mOsm/kg (285-295); Sodium 137 mmol/L (136-145); Total Bilirubin 0.3 mg/dL (0.15-1.2); Total Protein 6.8 g/dL (6.6-8.7)
[2020-07-02 06:55] LABS: Anion Gap 16.1 (5-19); Potassium 5.1 mmol/L (3.5-5.1)
[2020-07-02 07:38] LABS: Glucose Point of Care 136 mg/dL (70-110)
[2020-07-02] MEDS: collagenase oint 30 gm 1 APPLIC TOPICAL (08:35)
[2020-07-02] MEDS: gabapentin 100 mg Capsule PO (08:35)
[2020-07-02] MEDS: nystatin powder 15 gm Btl 1 APPLIC TOPICAL (08:35)
[2020-07-02] MEDS: risperiDONE 1 mg Tablet PO (08:35)
[2020-07-02] MEDS: magnesium sulfate premix 2 GM/50 ML PIGGYBACK IV (08:37)
--- NOTE | 2020-07-02 09:47 | P.DS_ITS ---
Discharge Providers Date of Admission: 06/28/20 22:02 Date of Discharge: July 02, 2020 Attending Provider at Admission: Yamileth Braxton MD Attending Provider at Discharge: Fuentes Aguillon MD Primary Care Provider: Mirza Jones MD Diagnoses at Discharge Discharge Diagnosis (1) Acute respiratory failure with hypoxia and hypercapnia: Status: Acute (2) Metabolic encephalopathy: Status: Acute (3) CINTHIA (acute kidney injury): Status: Acute (4) Anorexia: Status: Acute (5) Generalized weakness: Status: Acute (6) Dehydration with hyponatremia: Status: Acute (7) Morbid obesity with BMI of 60.0-69.9, adult: Status: Acute (8) Pneumonia due to COVID-19 virus: Status: Acute Reason for Visit Reason for Visit: COVID COMPLICATIONS Hospital Course Hospital Course Patient presented with altered mental status and shortness of breath. She was diagnosed with acute respiratory failure secondary to pneumonia which appears to be COVID-19 but bacterial coinfection cannot be ruled out. Patient was started on remdesivir and dexamethasone as well as cefepime. She clinically gradually improved and this morning reports feeling much better and wants to go back to nursing facility. She initially presented dehydrated with evidence of acute kidney injury. This improved with hydration. This morning it was noted very minimal lower extremity swelling and I think patient will benefit from daily Lasix instead of chlorthalidone therefore this will be adjusted. I will request CMP check in 3 days to make sure her potassium is in normal range otherwise some supplementation may need to be prescribed. Patient's white blood cell count is increasing although clinically patient is much better and therefore it felt to be related to steroids. I will continue Omnicef for 5 more days and dexamethasone for 3 more days as bacterial coinfection cannot be ruled out. I will request CBC check in 1 week with results sent to primary care physician to make sure her WBC improves after discontinuation of dexamethasone. This morning patient denies shortness of breath or chest pain. Her appetite and oral intake are great. She is saturating in the mid 90s on room air. Pablo catheter was removed and patient urinates without difficulty. Physical Exam Const: COMMON NORMALS: no acute distress and patient oriented x3 Resp: COMMON NORMALS: normal respiratory effort and clear to auscultation bilaterally AUSCULTATION: clear to auscultation bilaterally Cardio: COMMON NORMALS: regular rate, regular rhythm and S2 normal heart sound present RATE: regular rate RHYTHM: regular rhythm HEART SOUNDS: S2 normal heart sound present OTHER: Trace bilateral lower extremity edema GI: COMMON NORMALS: Normal to inspection, nondistended, normoactive bowel sounds present, Soft to palpation and non-tender PALPATION: Yes Soft to palpation Neuro: COMMON NORMALS: patient oriented x3 and no focal motor deficits Urinary Catheter Management^: Pablo: Cath Placed During This Visit: yes, but has since been removed by the nurse Reason for Continuing Indwelling Catheter: Accurate Measurement of Urinary Output in Critically Ill Patients Urinary Catheter Date of Insertion: 06/28/20 Urinary Catheter Time of Insertion: 23:00 Date Urinary Catheter Removed: 07/01/20 Time Urinary Catheter Discontinued: 10:51 Discharge Data Data Completed and Pending: Completed Studies During Hospitalization Category Date Time Status CT head wo con* 7 0450 Urgent Cat Scan 06/28/20 18:44 Completed XR chest 1V jennie ble [id number] Stat Exams 06/28/20 18:25 Completed Pending at discharge Category Date Time Status Blood Culture Sta t Lab 06/28/20 18:25 Results Complete Blood Co unt w/Auto AM LABS Lab 07/03/20 04:00 Ordered Comprehensive Met abolic Panel AM LA BS Lab 07/03/20 04:00 Ordered Magnesium AM LABS Lab 07/03/20 04:00 Ordered Labs from last 24 hours 07/02/20 07/02/20 07/02/20 07:12 04:00 04:00 WBC 12.4 H RBC 4.13 Hgb 10.9 L Hct 36.3 L MCV 87.9 MCH 26.4 L MCHC 30.0 RDW 13.9 Plt Count 269 MPV 10.8 H Neut % (Auto) 70.9 Lymph % (Auto) 20.6 [place] % (Auto) 6.4 Eos % (Auto) 0.1 Baso % (Auto) 0.3 Neut # (Auto) 8.77 H Lymph # (Auto) 2.6 [place] # (Auto) 0.8 Eos # (Auto) 0.0 Baso # (Auto) 0.0 Nucleated RBC % (a uto) 0 Nucleated RBCs # 0.0 Sodium 137 Potassium 5.1 Chloride 99 Carbon Dioxide 27 Anion Gap 16.1 BUN 23 Creatinine 0.5 GFR Calculation 125.4 Glucose 148 H POC Glucose 136 Calculated Osmolal ity 290 Calcium 9.5 Magnesium 1.4 L Total Bilirubin 0.3 AST 80 H ALT 70 H Alkaline Phosphata se 71 Total Protein 6.8 Albumin 3.3 L Globulin 3.5 07/01/20 07/01/20 07/01/20 21:33 16:33 11:33 WBC RBC Hgb Hct MCV MCH MCHC RDW Plt Count MPV Neut % (Auto) Lymph % (Auto) [place] % (Auto) Eos % (Auto) Baso % (Auto) Neut # (Auto) Lymph # (Auto) [place] # (Auto) Eos # (Auto) Baso # (Auto) Nucleated RBC % (a uto) Nucleated RBCs # Sodium Potassium Chloride Carbon Dioxide Anion Gap BUN Creatinine GFR Calculation Glucose POC Glucose 180 178 161 Calculated Osmolal ity Calcium Magnesium Total Bilirubin AST ALT Alkaline Phosphata se Total Protein Albumin Globulin Vitals: Last Vital Signs Temp 97.8 F 07/01/20 20:01 Pulse 78 07/02/20 08:56 Resp 21 H 07/02/20 06:00 BP 159/80 07/02/20 06:00 Pulse Ox 94 07/02/20 08:56 Discharge Plan Discharge Patient Disposition: Xfer SNF Condition: Stable Prescriptions: New cefdinir 300 mg capsule 300 mg PO BID 5 Days Qty: 10 RF: 0 dexamethasone 4 mg Tablet 6 mg PO DAILY Qty: 3 RF: 0 Nystop 100,000 unit/gram Powder 1 applic topical BID Qty: 30 RF: 0 Lasix 20 mg tablet 20 mg PO DAILY Qty: 30 RF: 0 Continued propranolol 80 mg capsule,extended release 24 hr 80 mg PO Q24H RF: 0 Zyrtec 10 mg capsule 10 mg PO DAILY@06 RF: 0 diazepam 2 mg tablet 1 mg PO DAILY@06 RF: 0 Prilosec OTC 20 mg tablet,delayed release (DR/EC) 20 mg PO DAILY@06 RF: 0 lisinopril 40 mg tablet 40 mg PO DAILY@06 RF: 0 pravastatin [Pravachol] 20 mg tablet 20 mg PO DAILY@18 RF: 0 hydrocodone-acetaminophen 5-325 mg tablet 1 tab PO BID@,18 RF: 0 gabapentin 100 mg capsule 100 mg PO TID@08,, RF: 0 diazepam 2 mg tablet 0.5 mg PO DAILY@20 RF: 0 folic acid 1 mg tablet 1 mg PO DAILY@06 RF: 0 metformin 1,000 mg tablet extended release 24hr 500 mg PO BID@08,20 RF: 0 albuterol sulfate 2.5 mg /3 mL (0.083 %) Solution For Nebulization 2.5 mg INHALATION Q4H PRN (Reason: Shortness Of Breath) RF: 0 hydrocodone-acetaminophen 5-325 mg Tablet 1 tab PO DAILY PRN (Reason: Pain) RF: 0 Artificial Tears (polyvin alc) 1.4 % Drops 1 drp OPHTHALMIC (EYE) TID@,,18 RF: 0 Tussin 100 mg/5 mL Liquid 200 mg PO Q4H PRN (Reason: Congestion) RF: 0 Milk of Magnesia 400 mg/5 mL Suspension 30 ml PO DAILY PRN (Reason: Constipation) RF: 0 Tums 200 mg calcium (500 mg) Tablet,Chewable 400 mg PO QID PRN (Reason: Acid Reflux) RF: 0 aspirin 81 mg Tablet,Chewable 81 mg PO DAILY@06 RF: 0 fluticasone propionate 50 mcg/actuation [place],Suspension 1 spray INTRANASAL DAILY@06 RF: 0 fluticasone propionate 110 mcg/actuation Hfa Aerosol Inhaler 1 puff INHALATION BID@,18 RF: 0 Lovenox 40 mg/0.4 mL Syringe 40 mg SUBCUT DAILY@08 RF: 0 camphor-methyl salicyl-menthol Adhesive Patch,Medicated 1 patch TOPICAL DAILY PRN (Reason: Pain) RF: 0 Acidophilus Tablet,Chewable 1 tab PO BID@,20 RF: 0 Cough Drops 5.8 mg Lozenge 5.8 mg MUCOUS MEMBRANE Q2H PRN (Reason: Cough) RF: 0 Tylenol 325 mg Capsule 325 mg PO Q4H PRN (Reason: Pain) RF: 0 cranberry 450 mg Tablet 450 mg PO BID@,18 RF: 0 hydroxyzine HCl 25 mg tablet 25 mg PO TID@,,18 RF: 0 Risperdal 1 mg tablet 1 mg PO BID@,20 RF: 0 Cymbalta 30 mg capsule,delayed release(DR/EC) 30 mg PO DAILY@06 RF: 0 Cymbalta 60 mg capsule,delayed release(DR/EC) 60 mg PO DAILY@06 RF: 0 Discontinued chlorthalidone 25 mg Tablet 25 mg PO DAILY@06 RF: 0 ceftriaxone [Rocephin] 1 gram Recon Soln 1 g IM ONCE RF: 0 levofloxacin [Levaquin] 750 mg Tablet 750 mg PO DAILY@14 RF: 0 Discharge Orders: Discharge Order (Routine); Ordered 07/02/20 Ordered By: Fuentes Aguillon Other Ambulatory Orders: Complete Blood Count w/Auto (Routine) Timeframe: 1 Week Location: Determined by Patient Ordered By: Fuentes Aguillon Comprehensive Metabolic Panel (Routine) Timeframe: 3 Days Facility: [facility] - Location: Lab - Main Lab Ordered By: Fuentes Aguillon Discharge Diet: Usual diet Discharge Activity: Increase activity as tolerated Activity Restrictions/Additional Instructions: Please call your doctor or present to emergency department if your condition worsens or you develop diarrhea, lightheadedness, fatigue or see blood in your stool or black stool. Patient to continue with physical therapy. Discharge Attestations Time Spent in Discharge Care*: greater than 30 min Quality Metrics Clinical Quality Measures During this hospital stay, did patient experience: None Coding Level of Care Code Acute Manager Corporate Responsibility for [facility] Diagnoses Acute respiratory failure with hypoxia and hypercapnia J96.01; J96.02 Metabolic encephalopathy G93.41 CINTHIA (acute kidney injury) N17.9 Anorexia R63.0 Generalized weakness R53.1 Dehydration with hyponatremia E86.0; E87.1 Morbid obesity with BMI of 60.0-69.9, adult E66.01; Z68.44 Pneumonia due to COVID-19 virus U07.1; J12.89
[2020-07-02 11:58] LABS: Glucose Point of Care 181 mg/dL (70-110)
[2020-07-02] MEDS: dexamethasone 4 mg Tablet 6 MG PO (12:30)
[2020-07-02] MEDS: cefepime 1,000 MG in sodium chloride 0.9% (plus) 50 ML 100 MG IV (12:47)
== END 2020-07-02 13:05 | disposition skilled nursing facility (03) | DRG 177 ==
LOC: ER 22:31 → ICU 06-29 07:19
PROVIDERS: Admitting Provider Internal Medicine; Emergency Provider Student in an Organized Health Care Education/Training Program; PCP Internal Medicine; Visit Provider Internal Medicine
DX: U07.1 COVID-19 (principal); J12.89 Other viral pneumonia; J96.02 Acute respiratory failure with hypercapnia; J96.01 Acute respiratory failure with hypoxia; G93.41 Metabolic encephalopathy; J15.9 Unspecified bacterial pneumonia; N17.9 Acute kidney failure, unspecified; F05 Delirium due to known physiological condition; E87.1 Hypo-osmolality and hyponatremia; Z68.44 Body mass index [BMI] 60.0-69.9, adult; E11.9 Type 2 diabetes mellitus without complications; G40.909 Epilepsy, unspecified, not intractable, without status epilepticus; K21.9 Gastro-esophageal reflux disease without esophagitis; I10 Essential (primary) hypertension; F70 Mild intellectual disabilities; G47.33 Obstructive sleep apnea (adult) (pediatric); F20.9 Schizophrenia, unspecified; E86.0 Dehydration; E66.01 Morbid (severe) obesity due to excess calories; L89.159 Pressure ulcer of sacral region, unspecified stage; Z79.82 Long term (current) use of aspirin; Z79.51 Long term (current) use of inhaled steroids; Z79.891 Long term (current) use of opiate analgesic
CPT/HCPCS: 12345; 36415; 36416; 36600; 51702; 70450; 71045; 80053; 81001; 82803; 82962; 83605; 83615; 83735; 84145; 84484; 85025; 85049; 85378; 85610; 85730; 86140; 87040; 87086; 93005; 94660; 96372; 97116; 97161; 97166; 97530; 97535; 99283; J0692; J1644; J1815; J2270; J2310; J2405; J3475; J7030; J8540

== ENCOUNTER 2020-11-01 08:33 | Outpatient (CLI) | payer MEDICARE, MEDICAID, SELFPAY | END 2020-11-01 08:34 | disposition home or self-care (01) | LOC: WOUND 08:35 | PROVIDERS: PCP Internal Medicine; Visit Provider Nurse Practitioner Family | DX: L98.492 Non-pressure chronic ulcer of skin of other sites with fat layer exposed (principal) | CPT/HCPCS: G0463 ==

== ENCOUNTER 2021-04-25 08:18 | Outpatient (CLI) | payer MEDICARE, MEDICAID, SELFPAY | END 2021-04-25 08:19 | disposition home or self-care (01) | LOC: WOUND 08:19 | PROVIDERS: PCP Internal Medicine; Visit Provider Nurse Practitioner Family | DX: L98.412 Non-pressure chronic ulcer of buttock with fat layer exposed (principal) | CPT/HCPCS: 11042; G0463 ==

== ENCOUNTER 2021-04-29 11:07 | Outpatient (CLI) | payer MEDICARE, MEDICAID, SELFPAY | END 2021-04-29 11:08 | disposition home or self-care (01) | LOC: WOUND 11:08 | PROVIDERS: PCP Internal Medicine; Visit Provider Emergency Medicine | DX: L89.152 Pressure ulcer of sacral region, stage 2 (principal); E11.9 Type 2 diabetes mellitus without complications | CPT/HCPCS: 11042 ==

== ENCOUNTER 2021-05-06 13:49 | Outpatient (CLI) | payer MEDICARE, MEDICAID, SELFPAY | END 2021-05-06 13:50 | disposition home or self-care (01) | LOC: WOUND 13:50 | PROVIDERS: PCP Internal Medicine; Visit Provider Emergency Medicine | DX: L89.152 Pressure ulcer of sacral region, stage 2 (principal) | CPT/HCPCS: 11042 ==

== ENCOUNTER 2021-05-20 09:22 | Outpatient (CLI) | payer MEDICARE, MEDICAID, SELFPAY | END 2021-05-20 09:23 | disposition home or self-care (01) | LOC: WOUND 09:23 | PROVIDERS: PCP Internal Medicine; Visit Provider Emergency Medicine | DX: L89.152 Pressure ulcer of sacral region, stage 2 (principal); E11.9 Type 2 diabetes mellitus without complications; I10 Essential (primary) hypertension; I73.9 Peripheral vascular disease, unspecified | CPT/HCPCS: 11042 ==

== ENCOUNTER 2021-06-03 13:04 | Outpatient (CLI) | payer MEDICARE, MEDICAID, SELFPAY | END 2021-06-03 13:05 | disposition home or self-care (01) | PROVIDERS: PCP Internal Medicine; Visit Provider Nurse Practitioner Family | DX: L89.152 Pressure ulcer of sacral region, stage 2 (principal); E11.9 Type 2 diabetes mellitus without complications; J44.9 Chronic obstructive pulmonary disease, unspecified; I73.9 Peripheral vascular disease, unspecified | CPT/HCPCS: 11042 ==

== ENCOUNTER 2021-06-17 13:44 | Outpatient (CLI) | payer MEDICARE, MEDICAID, SELFPAY | END 2021-06-17 13:45 | disposition home or self-care (01) | LOC: WOUND 13:45 | PROVIDERS: PCP Internal Medicine; Visit Provider Emergency Medicine | DX: L89.152 Pressure ulcer of sacral region, stage 2 (principal); J44.9 Chronic obstructive pulmonary disease, unspecified; I73.9 Peripheral vascular disease, unspecified; E11.9 Type 2 diabetes mellitus without complications; I10 Essential (primary) hypertension | CPT/HCPCS: 11042 ==

== ENCOUNTER 2021-07-01 13:36 | Outpatient (CLI) | payer MEDICARE, MEDICAID, SELFPAY | END 2021-07-01 13:37 | disposition home or self-care (01) | LOC: WOUND 13:37 | PROVIDERS: PCP Internal Medicine; Visit Provider Emergency Medicine | DX: L89.152 Pressure ulcer of sacral region, stage 2 (principal) | CPT/HCPCS: 11042 ==

== ENCOUNTER 2021-07-15 13:52 | Outpatient (CLI) | payer MEDICARE, MEDICAID, SELFPAY | END 2021-07-15 13:53 | disposition home or self-care (01) | LOC: WOUND 13:53 | PROVIDERS: PCP Internal Medicine; Visit Provider Nurse Practitioner Family | DX: L89.152 Pressure ulcer of sacral region, stage 2 (principal); J44.9 Chronic obstructive pulmonary disease, unspecified; I73.9 Peripheral vascular disease, unspecified; E11.9 Type 2 diabetes mellitus without complications | CPT/HCPCS: 11042 ==

== ENCOUNTER 2021-07-30 10:08 | Outpatient (CLI) | payer MEDICARE, MEDICAID, SELFPAY | END 2021-07-30 10:09 | disposition home or self-care (01) | LOC: WOUND 10:09 | PROVIDERS: PCP Internal Medicine; Visit Provider Emergency Medicine | DX: L89.152 Pressure ulcer of sacral region, stage 2 (principal); J44.9 Chronic obstructive pulmonary disease, unspecified | CPT/HCPCS: 99212 ==

== ENCOUNTER 2021-08-13 10:30 | Outpatient (CLI) | payer MEDICARE, MEDICAID, SELFPAY | END 2021-08-13 10:31 | disposition home or self-care (01) | LOC: WOUND 10:31 | PROVIDERS: PCP Internal Medicine; Visit Provider Emergency Medicine | DX: L89.152 Pressure ulcer of sacral region, stage 2 (principal); J44.9 Chronic obstructive pulmonary disease, unspecified; E11.9 Type 2 diabetes mellitus without complications | CPT/HCPCS: 99212 ==

== ENCOUNTER 2021-09-10 09:40 | Outpatient (CLI) | payer MEDICARE, MEDICAID, SELFPAY | END 2021-09-10 09:41 | disposition home or self-care (01) | LOC: WOUND 09:41 | PROVIDERS: PCP Internal Medicine; Visit Provider Emergency Medicine | DX: L89.152 Pressure ulcer of sacral region, stage 2 (principal); E11.9 Type 2 diabetes mellitus without complications; J44.9 Chronic obstructive pulmonary disease, unspecified | CPT/HCPCS: 99212 ==

== ENCOUNTER → 2021-12-25 11:21 | Outpatient (BNVA) | payer MEDICARE, MEDICAID, SELFPAY | PROVIDERS: PCP Internal Medicine; Visit Provider Nurse Practitioner | DX: F70 Mild intellectual disabilities (principal); F25.0 Schizoaffective disorder, bipolar type | CPT/HCPCS: 90792 ==

== ENCOUNTER → 2022-02-04 09:10 | Outpatient (BNVA) | payer MEDICARE, MEDICAID, SELFPAY | PROVIDERS: PCP Internal Medicine; Visit Provider Podiatrist Foot & Ankle Surgery | DX: L60.3 Nail dystrophy (principal); E11.42 Type 2 diabetes mellitus with diabetic polyneuropathy; M21.41 Flat foot [pes planus] (acquired), right foot; M21.42 Flat foot [pes planus] (acquired), left foot | CPT/HCPCS: 99203; 99204 ==

== ENCOUNTER 2022-06-18 13:34 | Emergency (ER) | payer MEDICARE, MEDICAID, SELFPAY ==
[2022-06-18] VITALS (9 sets, daily range): BP systolic 111–142; BP diastolic 47–63; PULSE 82–90; RESP 14–18; TEMP 36.8; O2SAT 94–99; BMI 43.2
--- NOTE | 2022-06-18 14:09 | ECG_ITS ---
[facility] Test Date: 2022-06-18 Pat Name: Taylor Stanley Department: Room: Gender: Female Mathematics Improvement Teacher: : 1960 Requested By: Salvatore Watson Order Number: [id number] Merari MD: Denys Alarcon M.D. Measurements Intervals [place] Rate: 82 P: 81 RI: 221 QRS: 87 QRSD: 170 T: 84 QT: 412 QTc: 482 Interpretive Statements SINUS RHYTHM WITH FIRST DEGREE AV BLOCK INTRAVENTRICULAR CONDUCTION DELAY [130+ ms QRS DURATION] Compared to ECG 06/28/2020 20:25:02 First degree AV block now present Intraventricular conduction delay now present Right bundle-branch block no longer present Electronically Signed On 06-18-2022 17:55:35 TRAFFIC CONTROL SUPERVISOR by Denys Alarcon M.D. [id number]
--- NOTE | 2022-06-18 14:14 | W.ED.CHESTPA ---
HPI - Chest Pain General: Chief Complaint: Chest Pain Stated Complaint: CP Time Seen by Provider: 06/18/22 13:36 History of Present Illness: Patient comes in with chest pain. States she started having chest pain earlier today which she describes as left-sided, sharp, lasted for about an hour, then went away. States she is asymptomatic at this time. She denies any cold symptoms including no fever, cough, congestion. Associated symptoms: Deny abdominal pain, dyspnea, fever(s), nausea, palpitations or vomiting Review of Systems Const: Denies: fever(s) or body aches Eyes: Denies: change in vision or blurry vision ENMT: Denies: throat pain or odynophagia Card: Reports: chest pain; Denies: palpitations Resp: Denies: dyspnea or productive cough GI: Denies: abdominal pain, nausea or vomiting : Denies: flank pain or dysuria Musc: Denies: neck pain or back pain Skin/Breast: Denies: rash or pruritus Neuro: Denies: headache(s) or numbness in extremities Psych: Denies: anxiety or change in appetite Endo: Denies: polyuria or excessive sweating PFSH ED PFSH: Medical History Diabetes mellitus Dry eye syndrome Epilepsy GERD (gastroesophageal reflux disease) GERD (gastroesophageal reflux disease) HTN (hypertension) Intellectual disability Leg edema Migraine Mild intellectual disabilities EVETTE (obstructive sleep apnea) Psychiatric care Schizoaffective disorder, bipolar type Seizure disorder Thyrotoxicosis Surgical History S/P cholecystectomy Family History Mother Hypertension Diabetes Father Hypertension Sister Cancer Social History Smoking and tobacco status: never smoked Alcohol intake: never Housing: Intermediate Physical Exam Const: COMMON NORMALS: no acute distress, patient oriented x3, healthy appearing and alert HENMT: COMMON NORMALS: normocephalic and atraumatic HEAD & SCALP: normocephalic and atraumatic Eye: COMMON NORMALS: Equal, round and reactive pupils present and EOMs intact bilaterally PUPIL: Yes Equal, round and reactive pupils present Neck/C-Spine: COMMON NORMALS: full ROM and supple Resp: COMMON NORMALS: normal respiratory effort, No retractions and No use of accessory muscles Cardio: COMMON NORMALS: regular rate and regular rhythm RATE: regular rate RHYTHM: regular rhythm GI: COMMON NORMALS: Normal to inspection, nondistended, normoactive bowel sounds present, Soft to palpation and non-tender PALPATION: Yes Soft to palpation Back/Pelvis: COMMON NORMALS: thoracic and lumbar spine normal to inspection and no thoracic nor lumbar tenderness Extremity: COMMON NORMALS: normal to inspection and full ROM Neuro: COMMON NORMALS: patient oriented x3 SENSORIUM/ORIENTATION: Yes alert Psych: COMMON NORMALS: mental status grossly normal and cooperative Skin: COMMON NORMALS: no rashes or lesions noted and no wounds GENERAL SKIN EXAM: no rashes or lesions noted Course Vital Signs: Vital signs: Vital Signs Temperature 98.2 F 06/18/22 13:37 Pulse Rate 89 06/18/22 18:30 Respiratory Rate 18 06/18/22 13:37 Blood Pressure 142/54 06/18/22 18:30 Pulse Oximetry 95 06/18/22 18:30 Oxygen Delivery Me thod 06/18/22 18:30 Oxygen Flow Rate 1 06/18/22 18:30 MDM - Chest Pain Medical Decision Making Patient comes in with chest pain. States she started having chest pain earlier today which she describes as left-sided, sharp, lasted for about an hour, then went away. States she is asymptomatic at this time. She denies any cold symptoms including no fever, cough, congestion. Physical exam is unremarkable. Will check labs, EKG, and reassess. On reassessment I talked to the patient about the test results. Will discharge home at this time with precautions to return for worsening or changing symptoms. Lab Data 06/18/22 14:22 06/18/22 18:34 Laboratory Results WBC 9.7 10^3/uL (4.0-10.0) 06/18/22 14: RBC 4.20 10^6/uL (4.1-5.3) 06/18/22 14: Hgb 11.1 g/dL (11.5-15.3) L 06/18/22 14: Hct 36.9 % (37.0-47.0) L 06/18/22 14: MCV 87.9 fl (81-99) 06/18/22 14: MCH 26.4 pg (28.0-34.0) L 06/18/22 14: MCHC 30.1 g/dL (30.0-36.0) 06/18/22 14: RDW 14.1 % (12.1-15.1) 06/18/22 14: Plt Count 202 10^3/cmm (130-400) 06/18/22 14: MPV 9.3 fL (7.4-10.4) 06/18/22 14: Neut % (Auto) 59.0 % 06/18/22 14: Lymph % (Auto) 30.9 % 06/18/22 14: [place] % (Auto) 7.2 % 06/18/22 14: Eos % (Auto) 2.4 % 06/18/22 14: Baso % (Auto) 0.2 % 06/18/22 14: Neut # (Auto) 5.75 10^3/uL (1.8-7.7) 06/18/22 14: Lymph # (Auto) 3.0 10^3/uL (0.8-4.8) 06/18/22 14: [place] # (Auto) 0.7 10^3/uL (0.2-0.9) 06/18/22 14: Eos # (Auto) 0.2 10^3/uL (0.0-0.8) 06/18/22 14: Baso # (Auto) 0.0 10^3/uL (0.0-0.1) 06/18/22 14: Nucleated RBC % (auto) 0 % 06/18/22 14: Nucleated RBCs # 0.0 /100WBC 06/18/22 14:22 Sodium 136 mmol/L (136-145) 06/18/22 18:34 Potassium 4.4 mmol/L (3.5-5.1) 06/18/22 18:34 Chloride 97 mmol/L (98-107) L 06/18/22 18:34 Carbon Dioxide 28 mmol/L (22-29) 06/18/22 18:34 Anion Gap 15.4 (5-19) 06/18/22 18:34 BUN 27 mg/dL (8-23) H 06/18/22 18:34 Creatinine 1.3 mg/dL (0.5-0.9) H 06/18/22 18:34 GFR Calculation 41.4 mL/min (90-130) L 06/18/22 18:34 Glucose 120 mg/dL (65-115) H 06/18/22 18:34 Calculated Osmolality 288 mOsm/kg (285-295) 06/18/22 18:34 Calcium 9.0 mg/dL (8.5-10.5) 06/18/22 18:34 Total Bilirubin 0.3 mg/dL (0.15-1.2) 06/18/22 14:22 AST 23 U/L (0-32) 06/18/22 14:22 ALT 22 U/L (0-33) 06/18/22 14:22 Alkaline Phosphatase 103 U/L (35-105) 06/18/22 14:22 Troponin T Baseline 18 ng/L (0-10) H 06/18/22 14:22 Troponin T 120 Minute 14.34 ng/L (0-10) H 06/18/22 16:37 Delta Troponin T -3.66 ABS# (0-10) L 06/18/22 16:37 Total Protein 6.7 g/dL (6.6-8.7) 06/18/22 14:22 Albumin 3.6 g/dL (3.5-5.2) 06/18/22 14:22 Globulin 3.1 g/dL (1.3-4.6) 06/18/22 14:22 Discharge Plan Discharge Patient Disposition: Home Clinical Impression: Nonspecific chest pain Condition: Stable Prescriptions: No Action propranolol 80 mg capsule,extended release 24 hr 80 mg PO Q24H Zyrtec 10 mg capsule 10 mg PO DAILY@06 diazepam 2 mg tablet 2 mg PO DAILY@06 Prilosec OTC 20 mg tablet,delayed release (DR/EC) 20 mg PO DAILY@06 lisinopril 40 mg tablet 40 mg PO DAILY@06 hydrocodone-acetaminophen 5-325 mg tablet 1 tab PO BID@06,18 gabapentin 100 mg capsule 100 mg PO BID folic acid 1 mg tablet 1 mg PO DAILY@06 Risperdal 1 mg tablet 1 mg PO BID@08,20 Qty: 60 2RF Cymbalta 60 mg capsule,delayed release(DR/EC) 120 mg PO DAILY@06 Qty: 60 2RF hydrocodone-acetaminophen 5-325 mg Tablet 1 tab PO DAILY PRN (Reason: Pain) magnesium hydroxide [Milk of Magnesia] 400 mg/5 mL Suspension 30 ml PO DAILY PRN (Reason: Constipation) aspirin 81 mg Tablet,Chewable 81 mg PO DAILY@06 fluticasone propionate 50 mcg/actuation [place],Suspension 1 spray INTRANASAL DAILY@06 hydroxyzine HCl 25 mg tablet 25 mg PO TID@06,12,18 furosemide [Lasix] 20 mg tablet 20 mg PO DAILY Qty: 30 0RF acetaminophen 325 mg Tablet 650 mg PO QID PRN (Reason: Pain) Refresh Tears 0.5 % Drops 1 drp OPHTHALMIC (EYE) TID All Day Relief 220 mg Tablet 220 mg PO DAILY PRN (Reason: Pain) pravastatin 20 mg Tablet 20 mg PO DAILY metformin 500 mg Tablet Extended Release 24hr 1,000 mg PO DAILY baclofen 5 mg Tablet 5 mg PO TID Discharge Orders: Discharge ED (Routine); Ordered 06/18/22 Ordered By: Salvatore Watson Referrals: Mirza Jones MD [Primary Care Provider] - Coding Level of Care Code ED Dredge Hand for Chg Fwd Exam Comprehensive
[2022-06-18 14:33] LABS: Basophils % 0.2 %; Eosinophils # 0.2 10^3/uL (0.0-0.8); Eosinophils % 2.4 %; Hematocrit 36.9 % (37.0-47.0); Hemoglobin 11.1 g/dL (11.5-15.3); Lymphocytes % 30.9 %; Mean Corpuscular HGB Conc 30.1 g/dL (30.0-36.0); Mean Corpuscular Hemoglobin 26.4 pg (28.0-34.0); Mean Corpuscular Volume 87.9 fl (81-99); Mean Platelet Volume 9.3 fL (7.4-10.4); Monocytes # 0.7 10^3/uL (0.2-0.9); Monocytes % 7.2 %; Neutrophils # 5.75 10^3/uL (1.8-7.7); Nucleated Red Blood Cells % 0 %; Platelet Count 202 10^3/cmm (130-400); Red Cell Distribution Width 14.1 % (12.1-15.1); White Blood Count 9.7 10^3/uL (4.0-10.0)
[2022-06-18 14:52] LABS: Troponin(5th) Baseline 18 ng/L (0-10)
[2022-06-18 14:54] LABS: Alanine Aminotransferase 22 U/L (0-33); Albumin Level 3.6 g/dL (3.5-5.2); Alkaline Phosphatase 103 U/L (35-105); Anion Gap 14.4 (5-19); Aspartate Amino Transferase 23 U/L (0-32); Blood Urea Nitrogen 31 mg/dL (8-23); Calcium 9.1 mg/dL (8.5-10.5); Carbon Dioxide 29 mmol/L (22-29); Chloride 98 mmol/L (98-107); Globulin 3.1 g/dL (1.3-4.6); Glomerular Filtration Rate 32.6 mL/min (90-130); Glucose 123 mg/dL (65-115); Osmolality Calculated 292 mOsm/kg (285-295); Potassium 4.4 mmol/L (3.5-5.1); Sodium 137 mmol/L (136-145); Total Bilirubin 0.3 mg/dL (0.15-1.2); Total Protein 6.7 g/dL (6.6-8.7)
[2022-06-18] MEDS: sodium chloride 0.9% 1,000 ML 999 ML IV (15:42)
--- NOTE | 2022-06-18 16:09 | ECG_ITS ---
[facility] Test Date: 2022-06-18 Pat Name: Taylor Stanley Department: Room: Gender: Female Aquatic Biologist: : 1960 Requested By: Salvatore Watson Order Number: [id number] Merari MD: Denys Alarcon M.D. Measurements Intervals [place] Rate: 83 P: 81 IN: 231 QRS: 84 QRSD: 153 T: 69 QT: 419 QTc: 495 Interpretive Statements SINUS RHYTHM WITH FIRST DEGREE AV BLOCK RIGHT BUNDLE BRANCH BLOCK [120+ ms QRS DURATION, UPRIGHT V1, 40+ ms S IN I/aVL/V4/V5/V6] Compared to ECG 06/18/2022 14:21:41 Right bundle-branch block now present Intraventricular conduction delay no longer present Electronically Signed On 06-18-2022 18:05:42 WATER SERVICE SUPERVISOR by Denys Alarcon M.D. [id number]
[2022-06-18 17:03] LABS: Troponin 5 2HR 14.34 ng/L (0-10)
[2022-06-18 17:06] LABS: Troponin 5 2HR Delta -3.66 ABS# (0-10)
[2022-06-18 19:16] LABS: Anion Gap 15.4 (5-19); Blood Urea Nitrogen 27 mg/dL (8-23); Carbon Dioxide 28 mmol/L (22-29); Chloride 97 mmol/L (98-107); Glomerular Filtration Rate 41.4 mL/min (90-130); Glucose 120 mg/dL (65-115); Osmolality Calculated 288 mOsm/kg (285-295); Potassium 4.4 mmol/L (3.5-5.1); Sodium 136 mmol/L (136-145)
--- NOTE | 2022-06-18 20:09 | ECG_ITS ---
[facility] Test Date: 2022-06-18 Pat Name: Taylor Stanley Department: Room: Gender: Female Complaint Evaluation Officer: : 1960 Requested By: Salvatore Watson Order Number: [id number] Merari MD: Luciana Hernandez M.D. Measurements Intervals [place] Rate: 84 P: 77 SC: 229 QRS: 84 QRSD: 154 T: 40 QT: 401 QTc: 475 Interpretive Statements SINUS RHYTHM WITH FIRST DEGREE AV BLOCK INTRAVENTRICULAR CONDUCTION DELAY [130+ ms QRS DURATION] Compared to ECG 06/18/2022 16:25:41 Intraventricular conduction delay now present Right bundle-branch block no longer present Electronically Signed On 06-19-2022 19:21:28 ENGINEERING PROGRAM ANALYST by Luciana Hernandez M.D. [id number]
== END 2022-06-18 20:37 | disposition home or self-care (01) ==
PROVIDERS: Emergency Provider Emergency Medicine; PCP Internal Medicine
DX: R07.89 Other chest pain (principal); Z79.82 Long term (current) use of aspirin; Z79.84 Long term (current) use of oral hypoglycemic drugs; E11.9 Type 2 diabetes mellitus without complications; I10 Essential (primary) hypertension
CPT/HCPCS: 80048; 80053; 84484; 85025; 93005; 96360; 99285; J7030

== ENCOUNTER 2022-06-19 11:34 | Outpatient (CLI) | payer MEDICARE, MEDICAID, SELFPAY ==
[2022-06-19 11:47] LABS: Basophils % 0.3 %; Eosinophils # 0.3 10^3/uL (0.0-0.8); Eosinophils % 4.2 %; Hematocrit 38.2 % (37.0-47.0); Hemoglobin 11.4 g/dL (11.5-15.3); Lymphocytes # 2.1 10^3/uL (0.8-4.8); Lymphocytes % 29.4 %; Mean Corpuscular HGB Conc 29.8 g/dL (30.0-36.0); Mean Corpuscular Hemoglobin 26.1 pg (28.0-34.0); Mean Corpuscular Volume 87.6 fl (81-99); Monocytes # 0.5 10^3/uL (0.2-0.9); Monocytes % 7.2 %; Neutrophils # 4.09 10^3/uL (1.8-7.7); Neutrophils % 58.5 %; Nucleated Red Blood Cells % 0 %; Platelet Count 214 10^3/cmm (130-400); Red Blood Count 4.36 10^6/uL (4.1-5.3); Red Cell Distribution Width 13.7 % (12.1-15.1)
[2022-06-19 12:14] LABS: Blood Urea Nitrogen 19 mg/dL (8-23); Calcium 9.1 mg/dL (8.5-10.5); Carbon Dioxide 28 mmol/L (22-29); Chloride 101 mmol/L (98-107); Glomerular Filtration Rate 72.4 mL/min (90-130); Glucose 127 mg/dL (65-115); NT Pro B Type Natriuretic Pept 291 pg/mL (0-125); Osmolality Calculated 292 mOsm/kg (285-295); Sodium 139 mmol/L (136-145)
[2022-06-19 12:16] LABS: Anion Gap 14.9 (5-19); Potassium 4.9 mmol/L (3.5-5.1)
== END 2022-06-19 11:35 | disposition home or self-care (01) ==
LOC: LAB 11:36
PROVIDERS: PCP Internal Medicine; Visit Provider Nurse Practitioner Family
DX: I49.9 Cardiac arrhythmia, unspecified (principal)
CPT/HCPCS: 80048; 83880; 85025